=== PATIENT | female | born 1995 | race Caucasian/White ===

== ENCOUNTER → 2023-02-27 09:22 | Outpatient (CLI) | payer BC, SELFPAY ==
--- NOTE | ~2023-02-27 | US_ITS ---
EXAMINATION: US OB transvaginal DATE: 02/27/2023 09:50 INDICATION: Left lower quadrant abdominal pain. TECHNIQUE: Multiple transvaginal sonographic images of the pelvis were obtained. COMPARISON: None. FINDINGS: The uterus measures 7.8 x 4.9 x 5.4 cm. There is physiologic free fluid in the pelvis. The endometria l complex measures 4 mm in thickness. There is a cyst in the endometrial complex with mean diameter o f 4 mm. The right ovary measures 3.7 x 2.9 x 3.4 cm. The left ovary measures 2.6 x 1.4 x 1.5 cm. Ther e is normal vascular flow in the ovaries. IMPRESSION: 1. Cyst in the endometrial complex, which is indeterminate for a gestational sac. A test is recommended. Reviewed, dictated and finalized at location A. IMPRESSION: 1. Cyst in the endometrial complex, which is indeterminate for a gestational sa c. A test is recommended.
== END ==
PROVIDERS: PCP Family Medicine; Visit Provider Family Medicine
DX: N73.9 Female pelvic inflammatory disease, unspecified (principal); Z32.01 Encounter for pregnancy test, result positive; R10.31 Right lower quadrant pain
CPT/HCPCS: 76817

== ENCOUNTER 2025-05-10 16:21 | Emergency (ER) | payer OTHER, SELFPAY ==
[2025-05-10] VITALS (12 sets, daily range): BP systolic 94–115; BP diastolic 45–72; PULSE 75–129; RESP 16–18; TEMP 36.7–37.3; O2SAT 98–100
--- NOTE | ~2025-05-10 | XR_ITS ---
EXAMINATION: XR chest 1V DATE: 05/10/2025 17:21 INDICATION: Sepsis TECHNIQUE: frontal view of the chest was obtained. COMPARISON: None FINDINGS: The lungs are clear with no focal airspace opacities, pulmonary edema, pleural effusion or pneumothor ax. The cardiomediastinal silhouette is normal. Visualized bones and soft tissues are unremarkable. IMPRESSION: 1. No acute cardiopulmonary disease. Reviewed, dictated and finalized at location A.
--- NOTE | ~2025-05-10 | CT_ITS ---
CLINICAL INDICATION: Fever and leukocytosis COMPARISON: None. Reference is made to a sonographic evaluation of the pelvis performed 2 hours earlier demonstrating a simple cyst within the left ovary measuring 2.7 cm in greatest dimension. TECHNIQUE: Multiple contiguous axial images of the abdomen and pelvis were performed following the ad ministration of with 100 mL Omnipaque-350 intravenous contrast The dose-length product (DLP) was 406.99 mGy-cm. Automated exposure control and iterative reconstruction technique were employed. FINDINGS/OBSERVATIONS: Visualized lower thorax: The bilateral lung bases are clear. The heart is of normal size, without pericardial effusion. Liver: The liver demonstrates homogeneous enhancement and is not enlarged. Gallbladder and biliary system: The gallbladder is only minimally distended, and otherwise unremarkable. Pancreas: The pancreas enhances homogeneously without ductal dilatation. Spleen: The spleen enhances homogeneously and is not enlarged. Kidneys: The bilateral kidneys enhance symmetrically without hydronephrosis or renal calculi and demonstrate r apid excretion. Adrenal glands: Unremarkable. Gastrointestinal tract: Fecal stasis within the colon. Appendix: The air-filled appendix is of normal caliber (axial series, images 116 through 142) Vasculature: Unremarkable. Lymph nodes: No pathologically enlarged or morphologically suspicious lymph nodes within the retroperitoneum or at the root of the mesentery. Pelvic structures: The bladder is only minimally distended, and is opacified with contrast. Trace surrounding inflammatory changes noted, for which cystitis is suspected. The uterus is anteverted and anteflexed. Redemonstration of the left ovarian cyst, seen on earlier ultrasound. Body wall and musculoskeletal: Small fat-containing umbilical hernia. No significant degenerative disease within the lower thoracic or lumbosacral spine. IMPRESSION: Normal appendix. Trace inflammatory change surrounding the bladder for which cystitis is suspected. Left ovarian cyst is redemonstrated. Reviewed, dictated and finalized at location A. IMPRESSION: Normal appendix. Trace inflammatory change surrounding the bladder for which cystitis is suspect ed. Left ovarian cyst is redemonstrated.
--- NOTE | ~2025-05-10 | US_ITS ---
EXAM: PELVIC ULTRASOUND HISTORY: lower abdominal pain, r/o torsion . 2 para 2. Last menstrual period is given as 05/04/2025 COMPARISON: None. FINDINGS: UTERUS: 9.5 x 4.9 x 4.9 cm. The uterus is anteverted and anteflexed. The endometrial complex measures 8.5 mm. RIGHT OVARY: The right ovary is unremarkable in echogenicity and size measuring 3.2 x 1.8 x 2.3 cm. Dopplerable flow is identified. LEFT OVARY: The left ovary is heterogeneous in echogenicity and increased in size measuring 4.6 x 1.9 x 2.8 cm Dopplerable flow is identified. A single anechoic avascular focus is identified within the left ovary measuring 2.7 x 1.8 x 2.3 cm, r epresenting a simple cyst (perhaps an involuting follicle) for which no further follow-up is needed. No free fluid is identified within the pelvis. IMPRESSION: Simple cyst within the left ovary which does not meet size criteria for follow-up in a patient of thi s age. Dopplerable flow is identified bilaterally for which torsion is not present. Reviewed, dictated and finalized at location A. IMPRESSION: Simple cyst within the left ovary which does not meet size criteria for follow- up in a patient of this age. Dopplerable flow is identified bilaterally for which torsion is not present.
--- OUTSIDE RECORDS SUMMARY | 2025-05-10 16:23 | XMS_ITS | Encounter Summary ---
Author Organization [facility] - [facility] Address [address] [place] [address] Care Team Providers Care Bumper Straightener Name Role Phone Wanda Mattson MD Primary Care Provider Wanda Mattson MD Unavailable [phone] Encounter Details Date Type Department Care Team (Late st Contact Info) Description 03/27/2022 [employer] Message [facility] Patient Accounts [address] [place] [address] [facility] Provider Monthly Payment Plan Social History Tobacco Use Types Packs/Day Years Used Date Smoking Tobacco: Never Smokeless Tobacco: Never Alcohol Use Standard Drinks/Week Comments Not Currently 0 (1 standard drink = 0.6 oz pur e alcohol) Humiliation, Afraid, Rape, and Kick questionnair e Answer Date Recorded Within the last year, have y ou been afraid of your partner or ex-partner? No 08/14/2021 Within the last year, have y ou been humiliated or emotionally abused in other ways by your partner or ex-partner? No Within the last year, have y ou been kicked, hit, slapped, or otherwise physically hurt by your partner or ex-partner? No 08/14/2021 Within the last year, have y ou been raped or forced to have any kind of sexual activity by your partner or ex-partner? No 08/14/2021 AUDIT-C Answer Date Recorded Frequency of Alcohol Consumption Never 06/01/2019 Average Number of Drinks Not on file 019 Frequency of Binge Drinking Not on file 05/05 Comments No Sex and Gender Information Value Date Recorded Sex Assigned at Female 05/10/2025 9:30 AM CDT Legal Sex Female 9:16 PM DUPLIGRAPH OPERATOR Gender Identity Not on file Sexual Orientation Not on file documented as of this encounter Functional Status * RETIRED Are you deaf or do you have serious difficulty hearing Answer Date of Assessment Author Status No 08/14/2021 11:58 PM DUPLIGRAPH OPERATOR Acti ve * RETIRED Are you blind or do you have serious difficulty seeing, even when wearing glasses? Answer Date of Assessment Author Status No 08/14/2021 11:58 PM DUPLIGRAPH OPERATOR Acti ve * Do you have serious difficulty walking or climbing stairs? Answer Date of Assessment Author Status No 08/14/2021 11:58 PM DUPLIGRAPH OPERATOR Nate Sanchez RN Active * Do you have difficulty dressing or bathing? Answer Date of Assessment Author Status No 08/14/2021 11:58 PM DUPLIGRAPH OPERATOR Nate Sanchez RN Active * Because of a physical, mental, or emotional condition, do you have difficulty doing errands alone such as visiting a doctor's office or shopping? Answer Date of Assessment Author Status No 08/14/2021 11:58 PM DUPLIGRAPH OPERATOR Nate Sanchez RN Active documented as of this encounter Mental Status * Because of a physical, mental, or emotional condition, do you have serious difficulty concentrating, remembering, or making decisions? Answer Entry Date Author Status No 08/14/2021 11:58 PM DUPLIGRAPH OPERATOR Nate Sanchez RN Active documented in this encounter Plan of Treatment Not on file documented as of this encounter Visit Diagnoses Not on filedocumented in this encounter Care Teams Bumper Straightener Relationship Specialty Start Date End Date Wanda Mattson MD [address] [place] [address] PCP - General FAMILY PRACTICE 08/13/21 Wanda Mattson MD [address] [place] [address] FAMILY PRACTICE 08/13/21 documented as of this encounter
--- OUTSIDE RECORDS SUMMARY | 2025-05-10 16:23 | XMS_ITS | Encounter Summary ---
Author Organization [facility] Address [address] [place] [address] Care Team Providers Care Bale Breaker Operator Name Role Phone Wanda Mattson MD Primary Care Provider Wanda Mattson MD Unavailable [phone] Encounter Details Date Type Department Care Team (Late st Contact Info) Description 05/10/2025 Orders Only [facility] [address] [id number] Saira Elias, [facility] [address] [place] [address] Social History Tobacco Use Types Packs/Day Years [...] AM CDT Legal Sex Female 9:16 PM SHIP PAINTER HELPER Gender Identity Not on file Sexual Orientation Not on file documented as of this encounter Functional Status * RETIRED Are you deaf or do you have serious difficulty hearing Answer Date of Assessment Author Status No 08/14/2021 11:58 PM SHIP PAINTER HELPER Acti ve * RETIRED Are you blind or do you have serious difficulty seeing, even when wearing glasses? Answer Date of Assessment Author Status No 08/14/2021 11:58 PM SHIP PAINTER HELPER Acti ve * Do you have serious difficulty walking or climbing stairs? Answer Date of Assessment Author Status No 08/14/2021 11:58 PM SHIP PAINTER HELPER Nate Sanchez RN Active * Do you have difficulty dressing or bathing? Answer Date of Assessment Author Status No 08/14/2021 11:58 PM SHIP PAINTER HELPER Nate Sanchez, RN Active * Because of a physical, mental, or emotional condition, do you have difficulty doing errands alone such as visiting a doctor's office or shopping? Answer Date of Assessment Author Status No 08/14/2021 11:58 PM SHIP PAINTER HELPER Nate Sanchez RN Active documented as of this encounter Mental Status * Because of a physical, mental, or emotional condition, do you have serious difficulty concentrating, remembering, or making decisions? Answer Entry Date Author Status No 08/14/2021 11:58 PM SHIP PAINTER HELPER Nate Sanchez RN Active documented in this encounter Plan of Treatment Not on file documented as of this encounter Visit Diagnoses Not on filedocumented in this encounter Care Teams Bale Breaker Operator Relationship Specialty Start Date End Date Wanda Mattson MD [address] [place], [place] [id number] PCP - General FAMILY PRACTICE 08/13/21 Wanda Mattson MD [address] [place] [address] FAMILY PRACTICE 08/13/21 documented as of this encounter
--- OUTSIDE RECORDS SUMMARY | 2025-05-10 16:23 | XMS_ITS | Encounter Summary ---
Author Organization [facility] Address [address] [place] [address] Care Team Providers Care Wind Field Service Manager Name Role Phone Wanda Mattson MD Primary Care Provider Wanda Mattson MD Unavailable [phone] Encounter Details Date Type Department Care Team (Late st Contact Info) Description 05/10/2025 Orders Only [facility] [address] [phone] Saira Elias, [facility] [address] [place] [address] Social History Tobacco Use Types Packs/Day Years [...] AM CDT Legal Sex Female 9:16 PM STARS SPECIALIST Gender Identity Not on file Sexual Orientation Not on file documented as of this encounter Functional Status * RETIRED Are you deaf or do you have serious difficulty hearing Answer Date of Assessment Author Status No 08/14/2021 11:58 PM STARS SPECIALIST Acti ve * RETIRED Are you blind or do you have serious difficulty seeing, even when wearing glasses? Answer Date of Assessment Author Status No 08/14/2021 11:58 PM STARS SPECIALIST Acti ve * Do you have serious difficulty walking or climbing stairs? Answer Date of Assessment Author Status No 08/14/2021 11:58 PM STARS SPECIALIST Nate Sanchez RN Active * Do you have difficulty dressing or bathing? Answer Date of Assessment Author Status No 08/14/2021 11:58 PM STARS SPECIALIST Nate Sanchez RN Active * Because of a physical, mental, or emotional condition, do you have difficulty doing errands alone such as visiting a doctor's office or shopping? Answer Date of Assessment Author Status No 08/14/2021 11:58 PM STARS SPECIALIST Nate Sanchez RN Active documented as of this encounter Mental Status * Because of a physical, mental, or emotional condition, do you have serious difficulty concentrating, remembering, or making decisions? Answer Entry Date Author Status No 08/14/2021 11:58 PM STARS SPECIALIST Nate Sanchez RN Active documented in this encounter Plan of Treatment Pending Results Name Type Priority Associated Diagnoses Date /Time C-REACTIVE PROTEIN Lab Routine Pelvic pain syndrome 05/10/2025 12:05 PM CDT SED RATE, ERYTHROCYTE (ESR) Lab Routine Pelvic pain syndrome 05/10/2025 12:05 PM CDT URINE BACTERIA CULTURE Microbiology Routine Pelvic pain syndrome 05/10/2025 12:05 PM CDT Scheduled Orders Name Type Priority Associated Diagnoses Orde r Schedule C-REACTIVE PROTEIN Lab Routine Pelvic pain syndrome Expected: 05/10/2025, Expires: 05/10/2026 SED RATE, ERYTHROCYTE (ESR) Lab Routine Pelvic pain syndrome Expected: 05/10/2025, Expires: 05/10/2026 URINE BACTERIA CULTURE Microbiology Routine Pelvic pain syndrome Expected: 05/10/2025, Expires: 05/10/2026 documented as of this encounter Results * (ABNORMAL) CBC W/DIFF AUTOMATED (05/10/2025 12:05 PM CDT) WBC 17.26(H) 4.50 - 11.00 x10'3/uL 05/10/2025 12:12 PM CDT [facility] RBC 4.46 4.00 - 5.20 x10'6/uL 05/10/2025 12:12 PM CDT [facility] HGB 13.5 12.0 - 16.0 G/DL 05/10/2025 12:12 PM CDT [facility] HCT 39.5 38.0 - 48.0 % 05/10/2025 12:12 PM CDT [facility] MCV 88.6 80.0 - 100.0 FL 05/10/2025 12:12 PM CDT [facility] MCH 30.3 26.0 - 34.0 PG 05/10/2025 12:12 PM CDT [facility] MCHC 34.2 31.0 - 37.0 G/DL 05/10/2025 12:12 PM CDT [facility] RDW 12.1 11.6 - 14.8 % 05/10/2025 12:12 PM CDT [facility] PLT 337 130 - 400 x10'3/uL 05/10/2025 12:12 PM CDT [facility] MPV 8.9 7.0 - 12.0 FL 05/10/2025 12:12 PM CDT [facility] CBC COMMENT AUTOMATED RBC MORPHOLOGY AND PLATELET EVALUATION NORMAL 05/10/2025 12:12 PM CDT [facility] NEUTROPHILS % 89.0(H) 40.0 - 74.0 % 05/10/2025 12:12 PM CDT [facility] LYMPHOCYTES % 5.5(L) 14.0 - 46.0 % 05/10/2025 12:12 PM CDT [facility] MONOCYTES % 4.4 4.0 - 13.0 % 05/10/2025 12:12 PM CDT [facility] EOSINOPHILS 0.3 0.0 - 7.0 % 05/10/2025 12:12 PM CDT [facility] BASOPHILS 0.2 0.0 - 3.0 % 05/10/2025 12:12 PM CDT [facility] IMMATURE GRANS % 0.6(H) 0.0 - 0.43 % 05/10/2025 12:12 PM CDT [facility] NRBC % 0.0 % 05/10/2025 12:12 PM CDT [facility] ABS. NEUTROPHILS TOTAL 15.36(H) 1.69 - 7.81 x10'3/uL 05/10/2025 12:12 PM CDT [facility] ABS. LYMPHOCYTES 0.95 0.21 - 5.42 x10'3/uL 05/10/2025 12:12 PM CDT [facility] ABS. MONOCYTES 0.76 0.04 - 1.37 x10'3/uL 05/10/2025 12:12 PM CDT [facility] ABS. EOSINOPHILS 0.05 0.00 - 0.68 x10'3/uL 05/10/2025 12:12 PM CDT [facility] ABS. BASOPHILS 0.04 0.00 - 0.08 x10'3/uL 05/10/2025 12:12 PM CDT [facility] ABS. IMMATURE GRANULOCYTES 0.10(H) 0.00 - 0.06 x10'3/uL 05/10/2025 12:12 PM CDT [facility] ABS. NUCLEATED RBC'S 0.00 0.00 - 0.01 x10'3/uL 05/10/2025 12:12 PM CDT [facility] 05/10/2025 12:0 5 PM CDT us Saira Elias [facility] Final R esult [facility] [address] [place] [address], * (ABNORMAL) COMPREHENSIVE METABOLIC PANEL (05/10/2025 12:05 PM CDT) GLUCOSE 105(H) 70 - 99 MG/DL 05/10/2025 12:26 PM CDT [facility] BUN 8 7 - 18 MG/DL 05/10/2025 12:26 PM CDT [facility] CREATININE S/P/B 0.67 0.50 - 1.20 MG/DL 05/10/2025 12:26 PM CDT [facility] SODIUM S/P/B 131(L) 136 - 145 MMOL/L 05/10/2025 12:26 PM CDT [facility] POTASSIUM S/P/B 4.2 3.5 - 5.1 MMOL/L 05/10/2025 12:26 PM CDT [facility] CHLORIDE S/P/B 97(L) 100 - 108 MMOL/L 05/10/2025 12:26 PM CDT [facility] CO2 28.2 21.0 - 32.0 MMOL/L 05/10/2025 12:26 PM CDT [facility] CALCIUM S/P/B 9.1 8.5 - 10.1 MG/DL 05/10/2025 12:26 PM CDT [facility] BILIRUBIN TOTAL S/P/B 1.1 0.2 - 1.2 MG/DL 05/10/2025 12:26 PM CDT [facility] Comment: THIS ASSAY IS NOT RECOMMENDED FOR PATIENTS UNDERGOING TREATMENT WITH ELTROMBOPAG DUE TO THE POTENTIAL FOR FALSELY ELEVATED RESULTS. TOTAL PROTEIN S/P/B 7.5 6.4 - 8.2 G/DL 05/10/2025 12:26 PM CDT [facility] ALBUMIN S/P/B 4.2 3.4 - 5.0 G/DL 05/10/2025 12:26 PM CDT [facility] AST 17 15 - 37 U/L 05/10/2025 12:26 PM CDT [facility] ALT 22 14 - 55 U/L 05/10/2025 12:26 PM CDT [facility] ALKALINE PHOSPHATASE S/P/B 69 50 - 136 U/L 05/10/2025 12:26 PM CDT [facility] ANION GAP 5.8 5.0 - 15.0 MMOL/L 05/10/2025 12:26 PM CDT [facility] BUN CREATININE RATIO 11.9 6 - 26 05/10/2025 12:26 PM CDT [facility] A/G RATIO 1.3 1.0 - 2.5 RATIO 05/10/2025 12:26 PM CDT [facility] GFR ESTIMATE >90 >90 ML/MIN/1.7 3 M2 05/10/2025 12:26 PM CDT [facility] Comment: NOTE: eGFR is not calculated for patients <18 years of age. This is an estimated GFR calculation using the new CKD EPI creatinine equation without race and so does not require a correction factor for race. This estimated GFR should not be used for calculating drug doses. 05/10/2025 12:0 5 PM CDT us Saira Elias [facility] Final R esult [facility] [address] [place] [address], documented in this encounter Visit Diagnoses Diagnosis Pelvic pain syndrome- Primary Pelvic congestion syndrome documented in this encounter Care Teams Wind Field Service Manager Relationship Specialty Start Date End Date Wanda Mattson MD [address] [place] [address] PCP - General FAMILY PRACTICE 08/13/21 Wanda Mattson MD [address] [place] [address] FAMILY PRACTICE 08/13/21 documented as of this encounter
--- OUTSIDE RECORDS SUMMARY | 2025-05-10 16:24 | XMS_ITS | Encounter Summary ---
Author Organization [facility] - [facility] Address [facility] [place] [address] Care Team Providers Care Microfilm Clerk Name Role Phone Wanda Mattson MD Primary Care Provider Wanda Mattson MD Unavailable [phone] Encounter Details Date Type Department Care Team (Late st Contact Info) Description 11/18/2021 [place] Message [facility] Patient Accounts [address] [place] [address] [facility] Provider Monthly Credit Card Payment Social History Tobacco Use Types Packs/Day Years [...] AM CDT Legal Sex Female 9:16 PM PROJECT INTERNSHIP Gender Identity Not on file Sexual Orientation Not on file documented as of this encounter Functional Status * RETIRED Are you deaf or do you have serious difficulty hearing Answer Date of Assessment Author Status No 08/14/2021 11:58 PM PROJECT INTERNSHIP Acti ve * RETIRED Are you blind or do you have serious difficulty seeing, even when wearing glasses? Answer Date of Assessment Author Status No 08/14/2021 11:58 PM PROJECT INTERNSHIP Acti ve * Do you have serious difficulty walking or climbing stairs? Answer Date of Assessment Author Status No 08/14/2021 11:58 PM PROJECT INTERNSHIP Nate Sanchez RN Active * Do you have difficulty dressing or bathing? Answer Date of Assessment Author Status No 08/14/2021 11:58 PM PROJECT INTERNSHIP Nate Sanchez RN Active * Because of a physical, mental, or emotional condition, do you have difficulty doing errands alone such as visiting a doctor's office or shopping? Answer Date of Assessment Author Status No 08/14/2021 11:58 PM PROJECT INTERNSHIP Nate Sanchez RN Active documented as of this encounter Mental Status * Because of a physical, mental, or emotional condition, do you have serious difficulty concentrating, remembering, or making decisions? Answer Entry Date Author Status No 08/14/2021 11:58 PM PROJECT INTERNSHIP Nate Sanchez RN Active documented in this encounter Plan of Treatment Not on file documented as of this encounter Visit Diagnoses Not on filedocumented in this encounter Care Teams Microfilm Clerk Relationship Specialty Start Date End Date Wanda Mattson MD [address] [place] [address] PCP - General FAMILY PRACTICE 08/13/21 Wanda Mattson MD [address] [place] [address] FAMILY PRACTICE 08/13/21 documented as of this encounter
--- OUTSIDE RECORDS SUMMARY | 2025-05-10 16:24 | XMS_ITS | Patient Health Record ---
Author Organization [facility] Address [address] [place] [address] Care Team Providers Care Building Construction Ironworker Name Role Phone Dr. Rusty Padron Primary Care Provider [phone] Dr. Wanda Mattson Unavailable [phone] Edward Stern Unavailable [phone] Saira Elias Unavailable [phone] Wanda Chance Unavailable [phone] Migration, Provider Unavailable Unavailable Results Component Value Reference Range Notes influenza A & B card Reviewed date:11/13/2024 11:29:17 AM Interpretation:Positive Performing Lab: Notes/Report: Positive Reason For Referral Reason Stress Induced Migra tracey - For Test Purposes, not real referral Diagnosis 1 Migraine, unspecifie d, not intractable, without status migrainosus (G43.909) Referral Organization [facility] Referring Provider First Name Dr. Oejda Referring Provider Last Name Vito Referring Provider Speciality Pediatrics Referred Provider Specialty Neurology General Notes Sherly Linder 0 11/13/2024 11:35:17 AM [employer] >For test purposes - not real referral Referral Priority Routine Medications Medication SIG (Take, Route, Frequency, Duration) Notes Start Date End Date Status Adderall 10 MG Tablet 1 tablet Oral two times a day; Duration: 30 days please provide generic 05/03/2025 Active Retin-A 0.05 % Cream External every day; Duration: 0 07/01/2023 Active Hydrocortisone 2.5 % Ointment External two times a day; Duration: 0 02/09/2022 Active Immunizations Vaccine Route Administration Date Status Comme nts Influenza, quadrivalent (IIV4), split virus, 6-35 months dosage IM Intramuscular 08/08/2021 Administered ,sourcename : New immunization record ,immstatus : Complete Source VFC Code: : Influenza, quadrivalent (IIV4), split virus, 6-35 months dosage IM Intramuscular 09/08/2022 Administered ,sourcename : N ew immunization record ,immstatus : Complete Influenza, quadrivalent (IIV4), split virus, 6-35 months dosage IM Intramuscular 07/29/2023 Administered ,sourcename : N ew immunization record ,immstatus : Complete Influenza, seasonal, injectable, preservative free, 3 yrs and above IM Intramuscular 08/01/2024 Administered ,sourcename : N ew immunization record ,immstatus : Complete Tdap IM Intramuscular 06/02/2021 Administered ,sourc ename : New immunization record ,immstatus : Complete Problems Problem Type SNOMED Code ICD Code Onset Dates Problem Status W/U Status Risk Notes Problem Viral infection (67381811) Viral infection, unspecified (B34.9) 04/15/20 23 Active confirmed Problem Generalized anxiety disorder (80262774) Generalized anxiety disorder (F41.1) 07/27/20 23 Active confirmed Problem Behavioral and emotional disorder with onset in childhood (405254404) Other specified behavioral and emotional disorders with onset usually occurring in childhood and adolescence (F98.8) 07/27/20 23 Active confirmed Problem Migraine without aura, not refractory (disorder) (497636293) Migraine, unspecified, not intractable, without status migrainosus (G43.909) 11/18/19 24 Active confirmed Problem Insomnia (538081327) Insomnia, unspecified (G47.00) 06/05/20 22 Active confirmed Problem Acute sinusitis (19849724) Acute sinusitis, unspecified (J01.90) 07/24/20 24 Active confirmed Problem Streptococcal pharyngitis (90522084) Streptococcal pharyngitis (J02.0) 04/17/20 23 Active confirmed Problem Acute pharyngitis (391890539) Acute pharyngitis, unspecified (J02.9) 04/15/20 23 Active confirmed Problem Acute upper respiratory infection (14185792) Acute upper respiratory infection, unspecified (J06.9) 10/06/19 22 Active confirmed Problem Influenza due to Influenza A virus with upper respiratory signs (819768554156110) Influenza due to other identified influenza virus with other respiratory manifestations (J10.1) 10/16/19 22 Active confirmed Problem Chronic sinusitis (77174562) Chronic sinusitis, unspecified (J32.9) 10/08/19 23 Active confirmed Problem Atopic dermatitis (86048159) Atopic dermatitis, unspecified (L20.9) 04/02/20 22 Active confirmed Problem Seborrhea capitis (019532203) Seborrhea capitis (L21.0) 04/13/20 23 Active confirmed Problem Pain of right knee region (finding) (836471754442352) Pain in right knee (M25.561) 08/12/20 23 Active confirmed Problem Abnormal uterine bleeding (09791027686162) Abnormal uterine and vaginal bleeding, unspecified (N93.9) 02/27/20 23 Active confirmed Problem Right lower quadrant pain (500835238) Right lower quadrant pain (R10.31) 02/27/20 23 Active confirmed Problem Eruption of skin (083020484) Rash and other nonspecific skin eruption (R21) 02/10/20 22 Active confirmed Problem Malaise (699698748) Other malaise (R53.81) 04/15/20 23 Active confirmed Problem Fatigue (40712774) Other fatigue (R53.83) 06/05/20 22 Active confirmed Problem Symptom: generalized (590718509) Other general symptoms and signs (R68.89) 08/26/20 22 Active confirmed Problem Injury of right lower leg (3116978020741625 9) Unspecified injury of right lower leg, initial encounter (S89.91XA) 04/07/20 23 Active confirmed Problem Vaccination given (796730576) Encounter for immunization (Z23) 08/08/20 21 Active confirmed Problem Contraception care education (849819367) Encounter for other general counseling and advice on contraception (Z30.09) 10/27/19 23 Active confirmed Problem test positive (490538735) Encounter for test, result positive (Z32.01) 02/27/20 23 Active confirmed Problem Personal history of other (healed) physical injury and trauma (Z87.828) 08/12/20 23 Active confirmed Problem COVID-19 (153274739) COVID-19 (U07.1) 10/17/19 22 Active confirmed Problem Suspected disease caused by Severe acute respiratory coronavirus 2 (situation) (816590288) Encounter for screening for COVID-19 (Z11.52) 10/06/19 22 Active confirmed Problem Acute cough (9797265892834011 04) Acute cough (R05.1) 10/17/19 22 Active confirmed Vital Signs Heart Rate 88 /min 05/10/2025 Temperature 97.1 degrees Fahrenheit 05/10/2025 Blood pressure diastolic 68 mm Hg 05/10/2025 Oximetry 99 % 05/10/2025 Blood pressure systolic 98 mm Hg 05/10/2025 Encounters Encounter Location Date Provider Diagnosis [address] [address] 07/24/2024 Saira Elias Acute sinusitis, unspecified J01.[address] [address] 08/01/2024 Dr. Wanda Mattson Encounter for immunization Z23 [address] [address] 05/10/2025 Saira Elias Pelvic pain in female R10.[address] [address] 10/24/2024 Saira Elias Influenza A J10.[address] [address] 11/14/[address] [address] 09/02/2024 Provider Migration [address] [address] 09/03/2024 Provider Migration [address] [address] 10/12/2024 Dr. Rusty Padron [address] [address] 11/09/2024 Saira Elias [address] [address] 11/13/2024 Dr. Rusty Padron Attention deficit disorder (ADD) in adult F98.[address] [address] 12/11/2024 Dr. Rusty Padron Attention deficit disorder (ADD) in adult F98.[address] [place] [address] 01/10/2025 Dr. Rusty Padron Attention deficit disorder (ADD) in adult [address] [address] 02/07/2025 Dr. Rusty Padron Attention deficit disorder (ADD) in adult [address] [address] 03/06/2025 Wanda Chance Attention deficit disorder (ADD) in adult [address] [address] 04/02/2025 Dr. Rusty Padron Attention deficit disorder (ADD) in adult [address] [address] 05/03/2025 Dr. Rusty Padron Attention deficit disorder (ADD) in adult [address] [address] 11/08/2024 Dr. Rusty Padron [address] [address] 11/08/2024 Dr. Rusty Padron [address] [address] 11/13/2024 Dr. Rusty Padron [address] [address] 11/13/2024 Dr. Rusty Padron [address] [address] 11/13/2024 Dr. Rusty Padron Assessments Encounter Date Diagnosis (ICD Code) Assessment Notes Treatment Notes Treatment Clinical Notes Section Notes 10/24/2024 Influenza A (ICD-10 - J10.1) Day 2 of Flu A. Tested with sample testing kit. Exam is overall good. Discussed the usual disease process and signs and symptoms to monitor . Tylenol or ibuprofen for fever or chills and body aches. Lots of fluids. Patient declined tamiflu at this time. Offered Tamiflu for prophylactic dosing to the rest of family and will hold off at this time. Monitor for secondary infections. 11/13/2024 Attention deficit disorder (ADD) in adult (ICD-10 - F98.8) 12/11/2024 Attention deficit disorder (ADD) in adult (ICD-10 - F98.8) 01/10/2025 Attention deficit disorder (ADD) in adult (ICD-10 - F98.8) 02/07/2025 Attention deficit disorder (ADD) in adult (ICD-10 - F98.8) 03/06/2025 Attention deficit disorder (ADD) in adult (ICD-10 - F98.8) 04/02/2025 Attention deficit disorder (ADD) in adult (ICD-10 - F98.8) 05/03/2025 Attention deficit disorder (ADD) in adult (ICD-10 - F98.8) 05/10/2025 Pelvic pain in female (ICD-10 - R10.2) 07/24/2024 Acute sinusitis, unspecified (ICD-10 - J01.90) 08/01/2024 Encounter for immunization (ICD-10 - Z23) Plan Of Treatment Pending Test Test Name Order Date C-Reactive Protein 05/10/2025 Erythrocyte Sedimentation Rate CBC w Auto Diff 05/10/2025 Comprehensive Metabolic Panel 05/10/2025 CT ABD+PEL W CON 05/10/2025 CT ABD+PEL WO CON 05/10/2025 Insurance Providers Payer Name Payer Address Payer Phone Subscriber Number Group Number Insured Name Patient Relationship to Insured Coverage Start Date Coverage End Date [facility] [address] [address] [place] [address] [id number] Leo Lewis Spouse - patient is the spouse of the insured 4 Medications Administered Medication Instructions Date of Administration Dosage Notes Ketorolac Tromethamine 05/10/2025 0.5 mg
--- OUTSIDE RECORDS SUMMARY | 2025-05-10 16:24 | XMS_ITS | Clinical Summary ---
Author Organization [facility] Address [facility] [place] [address] Care Team Providers Care Veterans Service Officer Name Role Phone Wanda Mattson MD Primary Care Provider Wanda Mattson MD Unavailable [phone] Allergies Active Allergy Reactions Criticality Noted Date Comments Cefaclor Hives 08/14/2021 Cefaclor Hives High 02/13/2014 Medications vitamin 27-1 MG Tab tablet Take 1 tablet by mouth daily. Active vitamin 27-1 MG tablet Take 1 tablet by mouth daily. Active Active Problems Problem Noted Date Diagnosed Date Encounter for elective induction of labor ([facility]) 08/14/2021 (spontaneous vaginal delivery) ([facility]) Resolved Problems Problem Noted Date Diagnosed Date Resolved Date Gestational diabetes mellitu s (GDM) affecting first ([facility]) 06/21/2019 06/24/2019 Encounters Date Type Department Care Team Description 05/10/2025 11:57 AM T Hospital Encounter [facility] [address] [place] [address] Saira Cid ANP-BC Arrived 05/10/2025 9:34 AM CDT Hospital Encounter [facility] [address] [place] [address] Saira Cid ANP-BC Arrived 05/10/2025 Orders Only [facility] [address] [place] [address] Saira Cid ANP-BC 05/10/2025 Orders Only [facility] [address] [address] Saira Cid, ANP-BC 05/10/2025 Travel from Last 3 Months Immunizations Immunization Administration Dates Next Due Dtap (Generic) 06/08/2019, 8,07/10/1994,1993,1992,1993 Influenza (Generic) 07/12/2017 Influenza Adult (Generic) 09/25/2019 MMR (Generic) 05/24/1998,01/03/1994 Opv 05/24/1998,07/10/1994,1993 ,1993 Family History Relation Status Comments Father Alive Mother Alive Social History Tobacco Use Types Packs/Day Years [...] AM CDT Legal Sex 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 Gender Identity Not on file Sexual Orientation Not on file Last Filed Vital Signs Vital Sign Reading Time Taken Comments Blood Pressure 109/69 08/17/2021 8:00 AM MACHINE PRINTER Pulse 70 08/17/2021 8:00 AM MACHINE PRINTER Temperature 36.9 C (98.5 F) 08/17/2021 8:00 AM MACHINE PRINTER Respiratory Rate 20 08/17/2021 8:00 AM MACHINE PRINTER Oxygen Saturation 99% 08/17/2021 8:00 AM MACHINE PRINTER Inhaled Oxygen Concentration - - Weight 84.4 kg (186 lb) 08/14/2021 9:00 PM MACHINE PRINTER Height 160 cm (5' 3) 08/14/2021 9:00 PM MACHINE PRINTER Body Mass Index 32.95 08/14/2021 9:00 PM MACHINE PRINTER Plan of Treatment Health Maintenance Due Date Last Done Comments Annual Physical 01/08/1996 Hepatitis C 2011 Hepatitis B Vaccines (1 of 3 - 19+ 3-dose series) 01/08/2012 Cervical Cancer Screening Pap Smear (Age 30 to 64) Every 3 Years 04/27/2017 04/27/2014 HPV Vaccines (1 - 3-dose SCDM series) 01/08/2020 Cervical Cancer Screening Pap with HPV Testing (Age 30 to 64) Every 5 Years 2023 Cervical Cancer Screening with HPV 2023 COVID-19 Vaccine ( season) 2024 06/27/2021, 06/06/2021 DTaP, Tdap and Td Vaccines (8 - Td or Tdap) 06/02/2031 06/02/2021, 06/08/2019, 06/08/2019, Additional history exists Meningococcal B Vaccine Aged Out No l onger eligible based on patient's age to complete this topic Meningococcal Vaccine Aged Out No jose elias alfred eligible based on patient's age to complete this topic Pneumococcal Vaccine: Pediatrics (0 to 5 Years) and At-Risk Patients (6 to 49 Years) Aged Out No longer eligible based on patient's age to complete this topic RSV Immunizations Under 20 Months Aged Out No longer eligible based on patient's age to complete this topic Procedures Procedure Name Priority Date/Time Associated Diagnosis Comments URINALYSIS AUTO DIP STAT 05/10/2025 1 2:05 PM CDT CBC W/DIFF AUTOMATED Routine 05/10/2025 12:05 PM CDT Pelvic pain syndrome COMPREHENSIVE METABOLIC PANEL Routine 05/10/2025 12:05 PM CDT Pelvic pain syndrome CT ABD+PEL W CON STAT 05/10/2025 10:1 6 AM CDT Pelvic pain in female THINPREP IMAGING PAP REFLEX HPV MRNA E6/E7 Routine 04/27/2014 3:00 PM CDT from Last 3 Months or Most Recently Relevant to Health Maintenance Results * (ABNORMAL) URINALYSIS AUTO DIP (05/10/2025 12:05 PM CDT) COLOR (U) LIGHT YELLOW(A) YELLOW 05/10/2025 2:21 PM CDT [facility] TRANSPARENCY CLEAR CLEAR 05/10/2025 2:21 PM CDT [facility] SPECIFIC GRAVITY (U) >1.030(H) 1.001 - 1.030 05/10/2025 2:21 PM CDT [facility] U PH 6.0 5.0 - 9.0 05/10/2025 2:21 PM CDT [facility] LEUKOCYTES (U) 2+(A) NEGATIVE 05/10/2025 2:21 PM CDT [facility] NITRITES NEGATIVE NEGATIVE 05/10/2025 2:21 PM CDT [facility] PROTEIN RANDOM (U) NEGATIVE NEGATIVE 05/10/2025 2:21 PM CDT [facility] GLUCOSE (U) NORMAL NORMAL 05/10/2025 2:21 PM CDT [facility] KETONES MG/DL (U) NEGATIVE NEGATIVE 05/10/2025 2:21 PM CDT [facility] UROBILINOGEN 2.0(A) NORMAL EU/DL 05/10/2025 2:21 PM CDT [facility] BILIRUBIN (U) NEGATIVE NEGATIVE 05/10/2025 2:21 PM CDT [facility] BLOOD (U) NEGATIVE NEGATIVE 05/10/2025 2:21 PM CDT [facility] URINE MICROSCOPIC URINE MICROSCOPIC TO FOLLOW. 05/10/2025 2:21 PM CDT [facility] 05/10/2025 12:0 5 PM CDT Saira Cid [facility] URINE ORDERABLES Final Result [facility] [address] [address], [place] * (ABNORMAL) COMPREHENSIVE METABOLIC PANEL (05/10/2025 12:05 PM CDT) GLUCOSE 105(H) 70 - 99 MG/DL 05/10/2025 12:26 PM CDT [facility] BUN 8 7 - 18 MG/DL 05/10/2025 12:26 PM CDT [facility] CREATININE S/P/B 0.67 0.50 - 1.20 MG/DL 05/10/2025 12:26 PM CDT [facility] SODIUM S/P/B 131(L) 136 - 145 MMOL/L 05/10/2025 12:26 PM CDT [facility] POTASSIUM S/P/B 4.2 3.5 - 5.1 MMOL/L 05/10/2025 12:26 PM CDT [facility] CHLORIDE S/P/B 97(L) 100 - 108 MMOL/L 05/10/2025 12:26 PM CDT [facility] CO2 28.2 21.0 - 32.0 MMOL/L 05/10/2025 12:26 PM CDT [facility] CALCIUM S/P/B 9.1 8.5 - 10.1 MG/DL 05/10/2025 12:26 PM CDT [facility] BILIRUBIN TOTAL S/P/B 1.1 0.2 - 1.2 MG/DL 05/10/2025 12:26 PM CDT [facility] Comment: THIS ASSAY IS NOT RECOMMENDED FOR PATIENTS UNDERGOING TREATMENT WITH ELTROMBOPAG DUE TO THE POTENTIAL FOR FALSELY ELEVATED RESULTS. TOTAL PROTEIN S/P/B 7.5 6.4 - 8.2 G/DL 05/10/2025 12:26 PM CDT [facility] ALBUMIN S/P/B 4.2 3.4 - 5.0 G/DL 05/10/2025 12:26 PM CDT [facility] AST 17 15 - 37 U/L 05/10/2025 12:26 PM CDT [facility] ALT 22 14 - 55 U/L 05/10/2025 12:26 PM CDT [facility] ALKALINE PHOSPHATASE S/P/B 69 50 - 136 U/L 05/10/2025 12:26 PM CDT [facility] ANION GAP 5.8 5.0 - 15.0 MMOL/L 05/10/2025 12:26 PM CDT [facility] BUN CREATININE RATIO 11.9 6 - 26 05/10/2025 12:26 PM CDT [facility] A/G RATIO 1.3 1.0 - 2.5 RATIO 05/10/2025 12:26 PM CDT [facility] GFR ESTIMATE >90 >90 ML/MIN/1.7 3 M2 05/10/2025 12:26 PM CDT [facility] Comment: NOTE: eGFR is not calculated for patients <18 years of age. This is an estimated GFR calculation using the new CKD EPI creatinine equation without race and so does not require a correction factor for race. This estimated GFR should not be used for calculating drug doses. 05/10/2025 12:0 5 PM CDT us Saira Cid [facility] Final R esult [facility] [address] [address], * (ABNORMAL) CBC W/DIFF AUTOMATED (05/10/2025 12:05 PM CDT) WBC 17.26(H) 4.50 - 11.00 x10'3/uL 05/10/2025 12:12 PM CDT [facility] RBC 4.46 4.00 - 5.20 x10'6/uL 05/10/2025 12:12 PM CDT [facility] HGB 13.5 12.0 - 16.0 G/DL 05/10/2025 12:12 PM CDT [facility] HCT 39.5 38.0 - 48.0 % 05/10/2025 12:12 PM CDT [facility] MCV 88.6 80.0 - 100.0 FL 05/10/2025 12:12 PM CDT [facility] MCH 30.3 26.0 - 34.0 PG 05/10/2025 12:12 PM CDT [facility] MCHC 34.2 31.0 - 37.0 G/DL 05/10/2025 12:12 PM CDT [facility] RDW 12.1 11.6 - 14.8 % 05/10/2025 12:12 PM CDT [facility] PLT 337 130 - 400 x10'3/uL 05/10/2025 12:12 PM CDT [facility] MPV 8.9 7.0 - 12.0 FL 05/10/2025 12:12 PM CDT [facility] CBC COMMENT AUTOMATED RBC MORPHOLOGY AND PLATELET EVALUATION NORMAL 05/10/2025 12:12 PM CDT [facility] NEUTROPHILS % 89.0(H) 40.0 - 74.0 % 05/10/2025 12:12 PM CDT [facility] LYMPHOCYTES % 5.5(L) 14.0 - 46.0 % 05/10/2025 12:12 PM CDT [facility] MONOCYTES % 4.4 4.0 - 13.0 % 05/10/2025 12:12 PM CDT [facility] EOSINOPHILS 0.3 0.0 - 7.0 % 05/10/2025 12:12 PM CDT [facility] BASOPHILS 0.2 0.0 - 3.0 % 05/10/2025 12:12 PM CDT [facility] IMMATURE GRANS % 0.6(H) 0.0 - 0.43 % 05/10/2025 12:12 PM CDT [facility] NRBC % 0.0 % 05/10/2025 12:12 PM CDT [facility] ABS. NEUTROPHILS TOTAL 15.36(H) 1.69 - 7.81 x10'3/uL 05/10/2025 12:12 PM CDT [facility] ABS. LYMPHOCYTES 0.95 0.21 - 5.42 x10'3/uL 05/10/2025 12:12 PM CDT [facility] ABS. MONOCYTES 0.76 0.04 - 1.37 x10'3/uL 05/10/2025 12:12 PM CDT [facility] ABS. EOSINOPHILS 0.05 0.00 - 0.68 x10'3/uL 05/10/2025 12:12 PM CDT [facility] ABS. BASOPHILS 0.04 0.00 - 0.08 x10'3/uL 05/10/2025 12:12 PM CDT [facility] ABS. IMMATURE GRANULOCYTES 0.10(H) 0.00 - 0.06 x10'3/uL 05/10/2025 12:12 PM CDT [facility] ABS. NUCLEATED RBC'S 0.00 0.00 - 0.01 x10'3/uL 05/10/2025 12:12 PM CDT [facility] 05/10/2025 12:0 5 PM CDT us Saira Cid [facility] Final R esult [facility] [address] [address], [place] * CT ABD+PEL W CON (05/10/2025 10:16 AM CDT) Anatomical Region Laterality Modality Abdomen Computed Tomogra phy 05/10/2025 11:0 6 AM CDT Impressions 05/10/2025 11:09 AM CDT IMPRESSION: 1. No acute findings Ordered By: SAIRA CID Interpreted By: Sadi Lerner MD, 05/10/2025 11:06 AM Narrative 05/10/2025 11:09 AM CDT [address] [place] [address] CT ABDOMEN AND PELVIS WITH CONTRAST Exam date:05/10/2025 9:59 AM Clinical history: Elevated pain. Technique: Dynamic helical images of the abdomen and pelvis were obtained. The patient received approximately 100 mL of Isovue 370 nonionic intravenous contrast through an IV in the right antecubital fossa. A dose lowering technique was used for this procedure, which may include, but is not limited to, dose reduction technique, automated exposure control, the use of iterative reconstruction, and ALARA (As Low As Reasonably Achievable) / Image Gently techniques. Comparison: None. FINDINGS: Images of the lower thorax demonstrate the visualized portion of the heart to appear normal. The lung bases are clear. Images of the abdomen demonstrate the overall size and morphology of the liver to be within normal limits. No hepatic lesions are observed. No ascites is seen. The gallbladder is present and normally distended. No stones are observed within its lumen and there is no evidence of cholecystitis or biliary obstruction. The pancreas, spleen, and adrenal glands appear grossly normal. The kidneys are normal in size bilaterally. There is normal symmetric enhancement after the administration of contrast. No stones or hydronephrosis is apparent. Both ureters follow normal expected course through the retroperitoneum. Images of the pelvis demonstrate the urinary bladder to appear normal. The uterus is normal in size and resides in an anteverted position in the mid pelvis. A left ovarian cyst measures 3.1 cm in diameter. Otherwise, the adnexa appear normal. The stomach and small bowel have a normal overall appearance. The appendix is within normal limits. The colon appears normal. No adenopathy or abnormal fluid collections are seen Procedure Note Sadi Lerner MD - 05/10/[address] [place] [address] CT ABDOMEN AND PELVIS WITH CONTRAST Exam date:05/10/2025 9:59 AM Clinical history: Elevated pain. Technique: Dynamic helical images of the abdomen and pelvis were obtained.The patient received approximately 100 mL of Isovue 370 nonionicintravenous contrast through an IV in the right antecubital fossa. A doselowering technique was used for this procedure, which may include, but isnot limited to, dose reduction technique, automated exposure control, theuse of iterative reconstruction, and ALARA (As Low As ReasonablyAchievable) / Image Gently techniques. Comparison: None. FINDINGS: Images of the lower thorax demonstrate the visualized portion of the heartto appear normal. The lung bases are clear. Images of the abdomen demonstrate the overall size and morphology of theliver to be within normal limits. No hepatic lesions are observed. Noascites is seen. The gallbladder is present and normally distended. Nostones are observed within its lumen and there is no evidence ofcholecystitis or biliary obstruction. The pancreas, spleen, and adrenalglands appear grossly normal. The kidneys are normal in size bilaterally.There is normal symmetric enhancement after the administration ofcontrast. No stones or hydronephrosis is apparent. Both ureters follownormal expected course through the retroperitoneum. Images of the pelvis demonstrate the urinary bladder to appear normal. Theuterus is normal in size and resides in an anteverted position in the midpelvis. A left ovarian cyst measures 3.1 cm in diameter. Otherwise, theadnexa appear normal. The stomach and small bowel have a normal overall appearance. The appendixis within normal limits. The colon appears normal. No adenopathy orabnormal fluid collections are seen IMPRESSION: 1. No acute findings Ordered By: SAIRA CID Interpreted By: Sadi Lerner MD, 05/10/2025 11:06 AM Saira Cid ANP-BC CT Final R esult * THINPREP IMAGING PAP REFLEX HPV MRNA E6/E7 (04/27/2014 3:00 PM CDT) REFLEX ADDED no [facility] P TO EPIC CONVERSION Comment: THIS TEST WAS PERFORMED AT [facility] [id number], [place] [address] 04/27/2014 3:00 PM CDT 04/27/2014 3:00 PM CDT Narrative [facility] TO EPIC CONVERSION - 05/02/2014 10:41 AM CDT This lab was migrated from [facility] and may be missing annotations or result text, please check the Media tab for the most complete results. us Kamila Crespo BUTTON MAKER AND INSTALLER PATHOLOGY/CYTOLOGY ORDERABLES F inal Result [facility] TO EPIC CONVERSION from Last 3 Months or Most Recently Relevant to Health Maintenance Insurance [facility]NAGEMENT [facility] Advance Directives * Full Code (Latest Code Status on File) Date Activated Date Inactivated Comments 08/14/2021 9:18 PM 08/15/2021 7:51 PM * Full Code Date Activated Date Inactivated Comments 06/21/2019 8:38 PM 06/23/2019 4:26 AM Care Teams Veterans Service Officer Relationship Specialty Start Date End Date Wanda Mattson MD [address] [place] [address] PCP - General FAMILY PRACTICE 08/13/21 Wanda Mattson MD [address] [place] [address] FAMILY PRACTICE 08/13/21
--- OUTSIDE RECORDS SUMMARY | 2025-05-10 16:24 | XMS_ITS | Encounter Summary ---
Author Organization [facility] Address [address] [place] [address] Care Team Providers Care Bread Dough Mixer Name Role Phone Wanda Mattson MD Primary Care Provider Wanda Mattson MD Unavailable [phone] Reason for Referral * Imaging (Emergency) - Closed Specialty Diagnoses / Procedures Referred By Contac t Referred To Contact RADIOLOGY Diagnoses Pelvic pain in female Procedures CT ABD+PEL W Saira Bush ANP-BC [address] [place] [id number] Phone: tel: fax: Referral ID Status Reason Start Date Expiration Date Visits Re quested Visits Authorized [id number] Closed 05/10/2025 08/08/2025 1 1 Reason for Visit * Imaging (Emergency) - Closed Specialty Diagnoses / Procedures Referred By Contac t Referred To Contact RADIOLOGY Diagnoses Pelvic pain in female Procedures CT ABD+PEL W Saira Bush, KANNAN-BC [address] [place] [id number] Phone: tel: fax: Referral ID Status Reason Start Date Expiration Date Visits Re quested Visits Authorized [id number] Closed 05/10/2025 08/08/2025 1 1 Encounter Details Date Type Department Care Team (Late st Contact Info) Description 05/10/2025 9:34 AM CDT Hospital Encounter [facility] [address] [address] Saira Cid, [facility]- [address] [place] [address] Arrived Social History Tobacco Use Types Packs/Day Years [...] AM CDT Legal Sex Female 9:16 PM HEAD OF ART Gender Identity Not on file Sexual Orientation Not on file documented as of this encounter Functional Status * RETIRED Are you deaf or do you have serious difficulty hearing Answer Date of Assessment Author Status No 08/14/2021 11:58 PM HEAD OF ART Acti ve * RETIRED Are you blind or do you have serious difficulty seeing, even when wearing glasses? Answer Date of Assessment Author Status No 08/14/2021 11:58 PM HEAD OF ART Acti ve * Do you have serious difficulty walking or climbing stairs? Answer Date of Assessment Author Status No 08/14/2021 11:58 PM HEAD OF ART Nate Sanchez RN Active * Do you have difficulty dressing or bathing? Answer Date of Assessment Author Status No 08/14/2021 11:58 PM HEAD OF ART Nate Sanchez RN Active * Because of a physical, mental, or emotional condition, do you have difficulty doing errands alone such as visiting a doctor's office or shopping? Answer Date of Assessment Author Status No 08/14/2021 11:58 PM Nate Willams RN Active documented as of this encounter Mental Status * Because of a physical, mental, or emotional condition, do you have serious difficulty concentrating, remembering, or making decisions? Answer Entry Date Author Status No 08/14/2021 11:58 PM Nate Willams RN Active documented in this encounter Plan of Treatment Not on file documented as of this encounter Procedures Procedure Name Priority Date/Time Associated Diagnosis Comments CT ABD+PEL W CON STAT 05/10/2025 10:1 6 AM CDT Pelvic pain in female documented in this encounter Results * CT ABD+PEL W CON (05/10/2025 10:16 AM CDT) Anatomical Region Laterality Modality Abdomen Computed Tomogra phy 05/10/2025 11:0 6 AM CDT Impressions 05/10/2025 11:09 AM CDT IMPRESSION: 1. No acute findings Ordered By: SAIRA CID Interpreted By: Sadi Lerner MD, 05/10/2025 11:06 AM Narrative 05/10/2025 11:09 AM CDT [address] [place] [address] CT ABDOMEN AND PELVIS WITH CONTRAST Exam [...] Procedure Note Sadi Lerner MD - 05/10/[address] [place] [place] [address] CT ABDOMEN AND PELVIS WITH CONTRAST Exam [...] Lerner MD, 05/10/2025 11:06 AM Saira Cid [facility]- CT Final R esult documented in this encounter Visit Diagnoses Diagnosis Pelvic pain in female Unspecified symptom associated with female genital organs documented in this encounter Administered Medications Inactive Administered Medications - up to 3 most recent administrations Medication Order MAR Action Action Date Dose Rate Site iopamidol (ISOVUE-370) 76 % injection 100 mL 100 mL, Intravenous, IMG once as needed, Contrast, 1 dose, Starting on Marcela 05/10/25 at 1016, Until Marcela 05/10/25 at 1014 Given 05/10/2025 10:14 AM CDT 100 mLs documented in this encounter Care Teams Bread Dough Mixer Relationship Specialty Start Date End Date Wanda Mattson MD [address] [place] [address] PCP - General FAMILY PRACTICE 08/13/21 Wanda Mattson MD [address] [place] [address] FAMILY PRACTICE 08/13/21 documented as of this encounter
--- OUTSIDE RECORDS SUMMARY | 2025-05-10 16:24 | XMS_ITS | Encounter Summary ---
Author Organization [facility] Address [address] [place] [address] Care Team Providers Care Life Insurance Actuary Name Role Phone Wanda Mattson MD Primary Care Provider Wanda Mattson MD Unavailable [phone] Encounter Details Date Type Department Care Team (Late st Contact Info) Description 05/10/2025 11:57 AM CDT Hospital Encounter [facility] [address] [phone] Saira Elias, [facility]- [address] [place] [address] Arrived Social History Tobacco Use Types Packs/Day [...] AM CDT Legal Sex Female 9:16 PM OVERSEER [employer]HER [employer] Gender Identity Not on file Sexual Orientation Not on file documented as of this encounter Functional Status * RETIRED Are you deaf or do you have serious difficulty hearing Answer Date of Assessment Author Status No 08/14/2021 11:58 PM OVERSEER K[employer]HER K[employer]EN Acti ve * RETIRED Are you blind or do you have serious difficulty seeing, even when wearing glasses? Answer Date of Assessment Author Status No 08/14/2021 11:58 PM OVERSEER KOSHER KITCHEN Acti ve * Do you have serious difficulty walking or climbing stairs? Answer Date of Assessment Author Status No 08/14/2021 11:58 PM OVERSEER K[employer]HER K[employer]EN Nate Sanchez RN Active * Do you have difficulty dressing or bathing? Answer Date of Assessment Author Status No 08/14/2021 11:58 PM OVERSEER [employer] K[employer]EN Nate Sanchez RN Active * Because of a physical, mental, or emotional condition, do you have difficulty doing errands alone such as visiting a doctor's office or shopping? Answer Date of Assessment Author Status No 08/14/2021 11:58 PM OVERSEER [employer]EN Nate Sanchez RN Active documented as of this encounter Mental Status * Because of a physical, mental, or emotional condition, do you have serious difficulty concentrating, remembering, or making decisions? Answer Entry Date Author Status No 08/14/2021 11:58 PM OVERSEER [employer] K[employer]EN Nate Sanchez RN Active documented in this encounter Plan of Treatment Pending Results Name Type Priority Associated Diagnoses Date /Time C-REACTIVE PROTEIN Lab Routine Pelvic pain syndrome 05/10/2025 12:05 PM CDT SED RATE, ERYTHROCYTE (ESR) Lab Routine Pelvic pain syndrome 05/10/2025 12:05 PM CDT URINE BACTERIA CULTURE Microbiology Routine Pelvic pain syndrome 05/10/2025 12:05 PM CDT URINALYSIS MICRO ONLY Lab STAT 04/2025 12:05 PM CDT Scheduled Orders Name Type Priority Associated Diagnoses Orde r Schedule C-REACTIVE PROTEIN Lab Routine Pelvic pain syndrome Once for 1 Occurrences starting 05/10/2025 until 05/10/2025 SED RATE, ERYTHROCYTE (ESR) Lab Routine Pelvic pain syndrome Once for 1 Occurrences starting 05/10/2025 until 05/10/2025 URINE BACTERIA CULTURE Microbiology Routine Pelvic pain syndrome Once for 1 Occurrences starting 05/10/2025 until 05/10/2025 URINALYSIS MICRO ONLY Lab STAT Onc e for 1 Occurrences starting 05/10/2025 until 05/10/2025 documented as of this encounter Procedures Procedure Name Priority Date/Time Associated Diagnosis Comments URINALYSIS AUTO DIP STAT 05/10/2025 1 2:05 PM CDT COMPREHENSIVE METABOLIC PANEL Routine 05/10/2025 12:05 PM CDT Pelvic pain syndrome CBC W/DIFF AUTOMATED Routine 05/10/2025 12:05 PM CDT Pelvic pain syndrome documented in this encounter Results * (ABNORMAL) URINALYSIS AUTO DIP (05/10/2025 12:05 PM CDT) COLOR (U) LIGHT YELLOW(A) YELLOW 05/10/2025 2:21 PM CDT [facility] TRANSPARENCY CLEAR CLEAR 05/10/2025 2:21 PM CDT [facility] SPECIFIC GRAVITY (U) >1.030(H) 1.001 - 1.030 05/10/2025 2:21 PM CDT [facility] U PH 6.0 5.0 - 9.0 05/10/2025 2:21 PM CDT [facility] LEUKOCYTES (U) 2+(A) NEGATIVE 05/10/2025 2:21 PM CDT [facility] NITRITES NEGATIVE NEGATIVE 05/10/2025 2:21 PM CDT [facility] PROTEIN RANDOM (U) NEGATIVE NEGATIVE 05/10/2025 2:21 PM CDT [facility] GLUCOSE (U) NORMAL NORMAL 05/10/2025 2:21 PM CDT [facility] KETONES MG/DL (U) NEGATIVE NEGATIVE 05/10/2025 2:21 PM CDT [facility] UROBILINOGEN 2.0(A) NORMAL EU/DL 05/10/2025 2:21 PM CDT [facility] BILIRUBIN (U) NEGATIVE NEGATIVE 05/10/2025 2:21 PM CDT [facility] BLOOD (U) NEGATIVE NEGATIVE 05/10/2025 2:21 PM CDT [facility] URINE MICROSCOPIC URINE MICROSCOPIC TO FOLLOW. 05/10/2025 2:21 PM CDT [facility] 05/10/2025 12:0 5 PM CDT us Saira Elias [facility]- URINE ORDERABLES Final Result [facility] [address] [place] [address], * (ABNORMAL) CBC W/DIFF AUTOMATED (05/10/2025 12:05 PM CDT) WBC 17.26(H) 4.50 - 11.00 x10'3/uL 05/10/2025 12:12 PM CDT [facility] RBC 4.46 4.00 - 5.20 x10'6/uL 05/10/2025 12:12 PM CDT [facility] HGB 13.5 12.0 - 16.0 G/DL 05/10/2025 12:12 PM CDT [facility] HCT 39.5 38.0 - 48.0 % 05/10/2025 12:12 PM CDT [facility] MCV 88.6 80.0 - 100.0 FL 05/10/2025 12:12 PM CDT [facility] MCH 30.3 26.0 - 34.0 PG 05/10/2025 12:12 PM CDT [facility] MCHC 34.2 31.0 - 37.0 G/DL 05/10/2025 12:12 PM CDT [facility] RDW 12.1 11.6 - 14.8 % 05/10/2025 12:12 PM CDT [facility] PLT 337 130 - 400 x10'3/uL 05/10/2025 12:12 PM CDT [facility] MPV 8.9 7.0 - 12.0 FL 05/10/2025 12:12 PM CDT [facility] CBC COMMENT AUTOMATED RBC MORPHOLOGY AND PLATELET EVALUATION NORMAL 05/10/2025 12:12 PM CDT [facility] NEUTROPHILS % 89.0(H) 40.0 - 74.0 % 05/10/2025 12:12 PM CDT [facility] LYMPHOCYTES % 5.5(L) 14.0 - 46.0 % 05/10/2025 12:12 PM CDT [facility] MONOCYTES % 4.4 4.0 - 13.0 % 05/10/2025 12:12 PM CDT [facility] EOSINOPHILS 0.3 0.0 - 7.0 % 05/10/2025 12:12 PM CDT [facility] BASOPHILS 0.2 0.0 - 3.0 % 05/10/2025 12:12 PM CDT [facility] IMMATURE GRANS % 0.6(H) 0.0 - 0.43 % 05/10/2025 12:12 PM CDT [facility] NRBC % 0.0 % 05/10/2025 12:12 PM CDT [facility] ABS. NEUTROPHILS TOTAL 15.36(H) 1.69 - 7.81 x10'3/uL 05/10/2025 12:12 PM CDT [facility] ABS. LYMPHOCYTES 0.95 0.21 - 5.42 x10'3/uL 05/10/2025 12:12 PM CDT [facility] ABS. MONOCYTES 0.76 0.04 - 1.37 x10'3/uL 05/10/2025 12:12 PM CDT [facility] ABS. EOSINOPHILS 0.05 0.00 - 0.68 x10'3/uL 05/10/2025 12:12 PM CDT [facility] ABS. BASOPHILS 0.04 0.00 - 0.08 x10'3/uL 05/10/2025 12:12 PM CDT [facility] ABS. IMMATURE GRANULOCYTES 0.10(H) 0.00 - 0.06 x10'3/uL 05/10/2025 12:12 PM CDT [facility] ABS. NUCLEATED RBC'S 0.00 0.00 - 0.01 x10'3/uL 05/10/2025 12:12 PM CDT [facility] 05/10/2025 12:0 5 PM CDT us Saira Elias [facility]- [facility] Final R esult [address] [place] [address], * (ABNORMAL) COMPREHENSIVE METABOLIC PANEL (05/10/2025 12:05 PM CDT) GLUCOSE 105(H) 70 - 99 MG/DL 05/10/2025 12:26 PM CDT [facility] BUN 8 7 - 18 MG/DL 05/10/2025 12:26 PM CDT [facility] CREATININE S/P/B 0.67 0.50 - 1.20 MG/DL 05/10/2025 12:26 PM CDT [facility] SODIUM S/P/B 131(L) 136 - 145 MMOL/L 05/10/2025 12:26 PM CDT [facility] POTASSIUM S/P/B 4.2 3.5 - 5.1 MMOL/L 05/10/2025 12:26 PM CDT [facility] CHLORIDE S/P/B 97(L) 100 - 108 MMOL/L 05/10/2025 12:26 PM CDT [facility] CO2 28.2 21.0 - 32.0 MMOL/L 05/10/2025 12:26 PM CDT [facility] CALCIUM S/P/B 9.1 8.5 - 10.1 MG/DL 05/10/2025 12:26 PM T [facility] BILIRUBIN TOTAL S/P/B 1.1 0.2 - 1.2 MG/DL 05/10/2025 12:26 PM T [facility] Comment: THIS ASSAY IS NOT RECOMMENDED FOR PATIENTS UNDERGOING TREATMENT WITH ELTROMBOPAG DUE TO THE POTENTIAL FOR FALSELY ELEVATED RESULTS. TOTAL PROTEIN S/P/B 7.5 6.4 - 8.2 G/DL 05/10/2025 12:26 PM CDT [facility] ALBUMIN S/P/B 4.2 3.4 - 5.0 G/DL 05/10/2025 12:26 PM CDT [facility] AST 17 15 - 37 U/L 05/10/2025 12:26 PM CDT [facility] ALT 22 14 - 55 U/L 05/10/2025 12:26 PM CDT [facility] ALKALINE PHOSPHATASE S/P/B 69 50 - 136 U/L 05/10/2025 12:26 PM T [facility] ANION GAP 5.8 5.0 - 15.0 MMOL/L 05/10/2025 12:26 PM T [facility] BUN CREATININE RATIO 11.9 6 - 26 05/10/2025 12:26 PM T [facility] A/G RATIO 1.3 1.0 - 2.5 RATIO 05/10/2025 12:26 PM T [facility] GFR ESTIMATE >90 >90 ML/MIN/1.7 3 M2 05/10/2025 12:26 PM T [facility] Comment: NOTE: eGFR is not calculated for patients <18 years of age. This is an estimated GFR calculation using the new CKD EPI creatinine equation without race and so does not require a correction factor for race. This estimated GFR should not be used for calculating drug doses. 05/10/2025 12:0 5 PM CDT us Saira Elias AN[facility]- LABORATORY Final R esult [facility] [address] [place] [address], documented in this encounter Visit Diagnoses Diagnosis Pelvic pain syndrome Pelvic congestion syndrome documented in this encounter Care Teams Life Insurance Actuary Relationship Specialty Start Date End Date Wanda Mattson MD [address] [place] [id number] PCP - General FAMILY PRACTICE 08/13/21 Wanda Mattson MD [address] [place] [address] FAMILY PRACTICE 08/13/21 documented as of this encounter
--- OUTSIDE RECORDS SUMMARY | 2025-05-10 16:24 | XMS_ITS | Encounter Summary ---
Author Organization [facility] Address [address] [place] [address] Care Team Providers Care Construction Coordinator Name Role Phone Wanda Mattson MD Primary Care Provider Wanda Mattson MD Unavailable [phone] Encounter Details Date Type Department Care Team (Latest Contact Info) Description 05/10/2025 Travel Social History Tobacco Use Types Packs/Day Years [...] AM CDT Legal Sex Female 9:16 PM LABOR RELATIONS REPRESENTATIVE Gender Identity Not on file Sexual Orientation Not on file documented as of this encounter Functional Status * RETIRED Are you deaf or do you have serious difficulty hearing Answer Date of Assessment Author Status No 08/14/2021 11:58 PM LABOR RELATIONS REPRESENTATIVE Acti ve * RETIRED Are you blind or do you have serious difficulty seeing, even when wearing glasses? Answer Date of Assessment Author Status No 08/14/2021 11:58 PM LABOR RELATIONS REPRESENTATIVE Acti ve * Do you have serious difficulty walking or climbing stairs? Answer Date of Assessment Author Status No 08/14/2021 11:58 PM Nate Willams RN Active * Do you have difficulty dressing or bathing? Answer Date of Assessment Author Status No 08/14/2021 11:58 PM Nate Willams RN Active * Because of a physical, [...] on filedocumented in this encounter Care Teams Construction Coordinator Relationship Specialty Start Date End Date Wanda Mattson MD [address] [place] [address] PCP - General FAMILY PRACTICE 08/13/21 Wanda Mattson MD [address] [place] [address] FAMILY PRACTICE 08/13/21 documented as of this encounter
--- NOTE | 2025-05-10 16:36 | ECG_ITS ---
Test Date: 2025-05-10 18:07:35 Measurements Intervals [place] Rate: 117 P: 50 MO: 141 QRS: 58 QRSD: 84 T: 184 QT: 341 QTc: 477 Interpretive Statements SINUS TACHYCARDIA LEFT ATRIAL ENLARGEMENT CONSIDER ANTERIOR INFARCT, AGE INDETERMINATE MINIMAL Q WAVES- ANTEROLAT/INF LEADS ST-T WAVE ABNORMALITY IN ANTEROLATERAL LEADS- CONSIDER ISCHEMIA BASELINE WANDER- V1 ABNORMAL ECG No previous ECG available for comparison Electronically Signed On 05-10-2025 20:20:05 CDT by Nikita Hopson D.O.
--- NOTE | 2025-05-10 16:40 | ED_ITS ---
HPI - Abdominal Pain General Chief Complaint: Abdominal Pain <Sangeeta Marino PA-C - Last Filed: 05/10/25 16:43> Stated Complaint: abdominal pain, fever <Sangeeta Marino PA-C - Last Filed: 05/10/25 16:43> Time Seen by Provider: 05/10/25 18:22 <Sangeeta Marino PA-C - Last Filed: 05/10/25 16:43> Focused HPI: 30-year-old female presents to the emergency department for lower abdominal pain that started yesterday. Patient states the pain started in her lower abdomen has to her periumbilical region and at times radiates to her LLQ. She states pain is worse when walking and when hitting bumps in the road. She reports associated decreased po intake. She went to her PCP today at [facility] and had lab work outpatient CT scan with contrast performed the CT scan her abdomen and pelvis done at 9:00 a.m. this morning which showed no acute findings. Patient had outpatient lab work performed at 11:00 a.m. which revealed leukocytosis of 17.26. The patient was contacted by her PCP advised to come to the ED for further evaluation. She states prior to leaving her house her temperature was 101?. She has not had any antipyretics since she received Toradol at the clinic around 8:00 a.m. this morning. She denies dysuria, hematuria, vaginal discharge or concern for STDs, prior abdominal surgeries, flank pain. Denies recent steroid use. GENERAL: Well-appearing, well-nourished, and in no acute distress. HEAD: Normocephalic, atraumatic. CHEST: Clear to auscultation. ?No respiratory distress. ABD: Tenderness to the periumbilical region and right lower quadrant. Negative Rovsing sign obturator sign. No CVA tenderness HEART: Regular rate and rhythm.? NEURO: ?Alert and oriented x3. Patient screened in triage and initial orders placed.? ?Additional care and disposition to be based upon?diagnostic testing and treatment. <ALONZO Manzano Last Filed: 05/10/25 16:43> Related Data Allergies/Adverse Reactions: Allergies Allergy/AdvReac Type Severity Reaction Status Date / Time cefaclor (From [facility]) Allergy Hives Verified 05/10/25 16:21 <Sangeeta Marino PA-C - Last Filed: 05/10/25 16:43> Review of Systems 2 Review of Systems: All systems reviewed & are unremarkable except as noted in HPI and below <Carri Colindres, SAMM - Last Filed: 05/10/25 21:20> Exam 2 Narrative: GENERAL: Well appearing, well-nourished, non-toxic, in no acute distress. HEAD: Normocephalic, atraumatic. NECK: Supple. No adenopathy, no masses. RESPIRATORY: Airway patent, respirations nonlabored. Clear to auscultation bilaterally, no rales, rhonchi, wheezing. CARDIOVASCULAR: Regular rate and rhythm without murmurs, rubs, or gallops. Peripheral pulses 2+ and equal bilaterally. -CVA tenderness ABDOMINAL: Soft, right upper quadrant, left upper quadrant, right lower quadrant, left lower quadrant tenderness with palpation, nondistended. Normoactive BS. MUSCULOSKELETAL: Moves all extremities. Strength/ROM intact without gross deformities. SKIN: Warm, dry, normal color. No rashes. NEURO: A&O X3. Speech clear. Cranial nerves II-XII intact. No ataxic movements. PSYCHIATRIC: Appropriate mood and affect. Normal interaction. <Carri Colindres, SAMM - Last Filed: 05/10/25 21:20> Course Vital Signs Vital signs: Vital Signs Temperature 37.3 C 05/10/25 16:24 Pulse Rate 129 H 05/10/25 16:24 Respiratory Rate 16 05/10/25 16:24 Blood Pressure 111/55 L 05/10/25 16:24 Pulse Oximetry 99 05/10/25 16:24 Oxygen Delivery Room Air 05/10/25 16:24 Temperature 37.3 C 05/10/25 16:24 Pulse Rate 75 05/10/25 20:45 Respiratory Rate 16 05/10/25 20:45 Blood Pressure 115/72 05/10/25 20:45 Pulse Oximetry 100 05/10/25 20:45 Oxygen Delivery Room Air 05/10/25 16:24 <Sangeeta Marino PA-C - Last Filed: 05/10/25 16:43> Vital Signs Temperature 37.3 C 05/10/25 16:24 Pulse Rate 129 H 05/10/25 16:24 Respiratory Rate 16 05/10/25 16:24 Blood Pressure 111/55 L 05/10/25 16:24 Pulse Oximetry 99 05/10/25 16:24 Oxygen Delivery Room Air 05/10/25 16:24 Temperature 37.3 C 05/10/25 16:24 Pulse Rate 75 05/10/25 20:45 Respiratory Rate 16 05/10/25 20:45 Blood Pressure 115/72 05/10/25 20:45 Pulse Oximetry 100 05/10/25 20:45 Oxygen Delivery Room Air 05/10/25 16:24 <Carri Colindres, SERVICES EXECUTIVE - Last Filed: 05/10/25 21:20> MDM - Abdominal Pain MDM Narrative Medical decision making narrative: 30-year-old female presents to the emergency department for lower abdominal pain that started yesterday. Patient states the pain started in her lower abdomen has to her periumbilical region and at times radiates to her LLQ. She states pain is worse when walking and when hitting bumps in the road. She reports associated decreased po intake. She went to her PCP today at [facility] and had lab work outpatient CT scan with contrast performed the CT scan her abdomen and pelvis done at 9:00 a.m. this morning which showed no acute findings. Patient had outpatient lab work performed at 11:00 a.m. which revealed leukocytosis of 17.26. The patient was contacted by her PCP advised to come to the ED for further evaluation. She states prior to leaving her house her temperature was 101?. She has not had any antipyretics since she received Toradol at the clinic around 8:00 a.m. this morning. She denies dysuria, hematuria, vaginal discharge or concern for STDs, prior abdominal surgeries, flank pain. Denies recent steroid use. Labs Ordered: CBC, CMP, lipase, lactic acid, CRP, COVID/flu/RSV, PTT, INR Imaging Ordered: CT abdomen pelvis, pelvic ultrasound Medications Ordered: 3 L normal saline IV bolus, morphine 4 mg, levofloxacin 750 mg IV Results: Patient's CT scan indicates Normal appendix. Trace inflammatory change surrounding the bladder for which cystitis is suspected. Left ovarian cyst is redemonstrated. Patient's CBC indicates white blood cell count 21.5. Her CMP indicates a sodium 135, carbon dioxide of 19, anion gap of 13, creatinine of 0.65, AST of 37. Patient's CRP is 8.0. Her urinalysis indicates 2+ ketones, 3+ leukocytes, and 21-50 wbcs. Diagnosis: Urinary tract infection Patient Education/Shared MDM: Results of lab work and imaging shared with patient. Her blood work does not indicate an acute kidney injury or sepsis, so patient will be discharged home with oral antibiotics. She endorses improvement of symptoms following medication administration. Patient strongly advised to maintain hydration status upon discharge and follow-up with her PCP in 2-3 days. She will be discharged home with a prescription for Bactrim and peridium. Strict return precautions provided. Patient verbalized understanding and is in agreement with plan. Vital signs stable at time of discharge. All questions answered. <Carri Colindres APRN - Last Filed: 05/10/25 21:20> Differential Diagnosis Differential diagnosis: Likely abdominal pain, acute appendicitis, calculus of kidney, constipation and gastroenteritis <Carri Colindres APRN - Last Filed: 05/10/25 21:20> Lab Data Attestation: I reviewed the patient's lab results. <Carri Colindres APRN - Last Filed: 05/10/25 21:20> Result diagrams: 05/10/25 18:19 05/10/25 18:19 <Sangeeta Marino PA-C - Last Filed: 05/10/25 16:43> Labs: Lab Results 05/10/25 05/10/25 Range/Units 18:19 18:20 WBC 21.5 H (4.5-10.0) K/mm3 RBC 4.26 (4.2-5.4) M/mm3 Hgb 12.9 (12.0-15.0) g/dL Hct 38.2 (37.0-47.0) % MCV 89.7 (80-100) fl MCH 30.3 (26-34) pg MCHC 33.8 (32-36) g/dl RDW 12.3 (11.5-14.5) % Plt Count 345 (150-375) k/mm3 MPV 9.2 (7.4-10.4) fl Immature Gran % (Auto) 0.5 (0-0.5) % Neut % (Auto) 89.4 H (45.5-73.1) % Lymph % (Auto) 5.9 L (18.3-44.2) % Gates % (Auto) 4.1 (2.6-8.5) % Eos % (Auto) 0.0 (0-4.4) % Baso % (Auto) 0.1 L (0.2-1.2) % Lymph # (Auto) 1.26 (0.9-3.2) K/mm3 Gates # (Auto) 0.9 H (0.1-0.6) K/mm3 Eos # (Auto) 0.0 (0-0.3) K/mm3 Baso # (Auto) 0.0 (0.0-0.1) K/mm3 Abs Immat Gran (auto) 0.11 H (0.00-0.031) K/mm3 Absolute Neuts (auto) 19.2 H (1.3-6.7) K/mm3 Absolute Nucleated RBC 0.000 (0.0-0.012) K/mm3 Nucleated RBC % 0.0 (0.0-0.2) % PT 14.4 (11.1-14.7) Seconds INR 1.1 APTT 27.1 (22.3-36.8) Seconds Sodium 135 L (137-145) mmol/L Potassium 4.0 (3.4-5.0) mmol/L Chloride 103 (98-107) mmol/L Carbon Dioxide 19 L (22-30) mmol/L Anion Gap 13 H (4-12) mmol/L BUN 9 (7-17) mg/dL Creatinine 0.65 L (0.7-1.0) mg/dL Estim Creat Clear Calc 92 ml/min Estimated GFR > 60 (59 - ) Glucose 98 (65-110) mg/dL Lactic Acid 1.2 (0.7-2.0) mmol/L Calcium 9.6 (8.4-10.2) mg/dL Total Bilirubin 1.3 (0.2-1.3) mg/dL AST 37 H (14-36) U/L ALT 27 (6-35) U/L Alkaline Phosphatase 75 (38-126) U/L C-Reactive Protein 8.0 H (<1.0) mg/dL Total Protein 8.4 H (6.3-8.2) g/dL Albumin 4.8 (3.5-5.1) g/dL Lipase 31 (23-300) U/L Urine Color Yellow (Yellow) Urine Appearance Clear (Clear) Urine pH 6.0 (5.0-9.0) Ur Specific Mary[place] 1.016 (1.001-1.035) Urine Protein Negative (Negative) mg/dL Urine Glucose (UA) Negative (Negative) mg/dL Urine Ketones 2+ H (Negative) mg/dL Ur Blood (Man) Negative (Negative) Urine Nitrate Negative (Negative) Urine Bilirubin Negative (Negative) Urine Urobilinogen 1.0 (<2.0) mg/dL Leukocyte Esterase Rfl 3+ H (Negative) GEORGE/UL Urine RBC 0-2 (0-2) /hpf Urine WBC 21-50 H (0-3) /hpf Ur Squamous Epith Cells Few (Few) /hpf Urine Bacteria None seen /hpf Urine Casts 0-2 POC Urine HCG, Qual Negative (Negative) Influenza A (RT-PCR) Negative (Negative) Influenza B (RT-PCR) Negative (Negative) RSV (RT-PCR) Negative (Negative) SARS-CoV-2 RNA (RT-PCR) Negative (Negative) <Sangeeta Marino PA-C - Last Filed: 05/10/25 16:43> Lab Results 05/10/25 05/10/25 Range/Units 18:19 18:20 WBC 21.5 H (4.5-10.0) K/mm3 RBC 4.26 (4.2-5.4) M/mm3 Hgb 12.9 (12.0-15.0) g/dL Hct 38.2 (37.0-47.0) % MCV 89.7 (80-100) fl MCH 30.3 (26-34) pg MCHC 33.8 (32-36) g/dl RDW 12.3 (11.5-14.5) % Plt Count 345 (150-375) k/mm3 MPV 9.2 (7.4-10.4) fl Immature Gran % (Auto) 0.5 (0-0.5) % Neut % (Auto) 89.4 H (45.5-73.1) % Lymph % (Auto) 5.9 L (18.3-44.2) % Gates % (Auto) 4.1 (2.6-8.5) % Eos % (Auto) 0.0 (0-4.4) % Baso % (Auto) 0.1 L (0.2-1.2) % Lymph # (Auto) 1.26 (0.9-3.2) K/mm3 Gates # (Auto) 0.9 H (0.1-0.6) K/mm3 Eos # (Auto) 0.0 (0-0.3) K/mm3 Baso # (Auto) 0.0 (0.0-0.1) K/mm3 Abs Immat Gran (auto) 0.11 H (0.00-0.031) K/mm3 Absolute Neuts (auto) 19.2 H (1.3-6.7) K/mm3 Absolute Nucleated RBC 0.000 (0.0-0.012) K/mm3 Nucleated RBC % 0.0 (0.0-0.2) % PT 14.4 (11.1-14.7) Seconds INR 1.1 APTT 27.1 (22.3-36.8) Seconds Sodium 135 L (137-145) mmol/L Potassium 4.0 (3.4-5.0) mmol/L Chloride 103 (98-107) mmol/L Carbon Dioxide 19 L (22-30) mmol/L Anion Gap 13 H (4-12) mmol/L BUN 9 (7-17) mg/dL Creatinine 0.65 L (0.7-1.0) mg/dL Estim Creat Clear Calc 92 ml/min Estimated GFR > 60 (59 - ) Glucose 98 (65-110) mg/dL Lactic Acid 1.2 (0.7-2.0) mmol/L Calcium 9.6 (8.4-10.2) mg/dL Total Bilirubin 1.3 (0.2-1.3) mg/dL AST 37 H (14-36) U/L ALT 27 (6-35) U/L Alkaline Phosphatase 75 (38-126) U/L C-Reactive Protein 8.0 H (<1.0) mg/dL Total Protein 8.4 H (6.3-8.2) g/dL Albumin 4.8 (3.5-5.1) g/dL Lipase 31 (23-300) U/L Urine Color Yellow (Yellow) Urine Appearance Clear (Clear) Urine pH 6.0 (5.0-9.0) Ur Specific Mary[place] 1.016 (1.001-1.035) Urine Protein Negative (Negative) mg/dL Urine Glucose (UA) Negative (Negative) mg/dL Urine Ketones 2+ H (Negative) mg/dL Ur Blood (Man) Negative (Negative) Urine Nitrate Negative (Negative) Urine Bilirubin Negative (Negative) Urine Urobilinogen 1.0 (<2.0) mg/dL Leukocyte Esterase Rfl 3+ H (Negative) GEORGE/UL Urine RBC 0-2 (0-2) /hpf Urine WBC 21-50 H (0-3) /hpf Ur Squamous Epith Cells Few (Few) /hpf Urine Bacteria None seen /hpf Urine Casts 0-2 POC Urine HCG, Qual Negative (Negative) Influenza A (RT-PCR) Negative (Negative) Influenza B (RT-PCR) Negative (Negative) RSV (RT-PCR) Negative (Negative) SARS-CoV-2 RNA (RT-PCR) Negative (Negative) <Carri Colindres, SAMM - Last Filed: 05/10/25 21:20> Imaging Data Attestation: I personally reviewed and interpreted this imaging study as follows: < Carri Colindres, SERVICES EXECUTIVE - Last Filed: 05/10/25 21:20> Radiologist's impression: ITS Impressions Chest X-Ray 05/10/25 17:22 IMPRESSION: 1. No acute cardiopulmonary disease. Pelvis Ultrasound 05/10/25 17:34 IMPRESSION: Simple cyst within the left ovary which does not meet size criteria for follow- up in a patient of this age. Dopplerable flow is identified bilaterally for which torsion is not present. Abdomen/Pelvis CT 05/10/25 19:57 IMPRESSION: Normal appendix. Trace inflammatory change surrounding the bladder for which cystitis is suspected. Left ovarian cyst is redemonstrated. <Sangeeta Marino PA-C - Last Filed: 05/10/25 16:43> ITS Impressions Chest X-Ray 05/10/25 17:22 IMPRESSION: 1. No acute cardiopulmonary disease. Pelvis Ultrasound 05/10/25 17:34 IMPRESSION: Simple cyst within the left ovary which does not meet size criteria for follow- up in a patient of this age. Dopplerable flow is identified bilaterally for which torsion is not present. Abdomen/Pelvis CT 05/10/25 19:57 IMPRESSION: Normal appendix. Trace inflammatory change surrounding the bladder for which cystitis is suspected. Left ovarian cyst is redemonstrated. <Carri Colindres APRN - Last Filed: 05/10/25 21:20> Discharge Plan Discharge Clinical Impression: Cystitis, Abdominal pain <Sangeeta Marino PA-C - Last Filed: 05/10/25 16:43> Patient Disposition: Home <ALONZO Manzano Last Filed: 05/10/25 16:43> Condition: Stable <ALONZO Manzano Last Filed: 05/10/25 16:43> Instructions: Antibiotic Form, Urinary Tract Infection in Women (ED) <Sangeeta Marino PA-C - Last Filed: 05/10/25 16:43> Additional Instructions: Please return to the ER with any worsening symptoms. Follow-up with primary care provider in 2-3 days to make sure you are healing. Take all medications as prescribed, including regularly scheduled medications. Complete your full dose of antibiotics. Please remember to drink lots of water. <Sangeeta Marino PA-C - Last Filed: 05/10/25 16:43> Patient Language: Cambodian <ALONZO Manzano Last Filed: 05/10/25 16:43> Prescriptions: New phenazopyridine [Pyridium] 200 mg tablet 200 mg PO TID Qty: 6 0RF sulfamethoxazole-trimethoprim [Bactrim DS] 800-160 mg tablet 1 tablet PO Q12H 5 Days Qty: 10 0RF <ALONZO Manzano Last Filed: 05/10/25 16:43> Follow-up/Referrals: Wanda Mattson MD [Primary Care Provider] - <ALONZO Manzano Last Filed: 05/10/25 16:43> Time of Disposition: 21:20 <ALONZO Manzano Last Filed: 05/10/25 16:43> 21:20 <Carri Colindres, SERVICES EXECUTIVE - Last Filed: 05/10/25 21:20>
[2025-05-10 18:22] LABS: BEDSIDEPREGUCG Negative (Negative)
[2025-05-10 18:28] LABS: Hematocrit 38.2 % (37.0-47.0); Hemoglobin 12.9 g/dL (12.0-15.0); Immature Granulocyte Percent A 0.5 % (0-0.5); Lymphocytes Absolute Auto 1.26 K/mm3 (0.9-3.2); Mean Corpuscular HGB Conc 33.8 g/dl (32-36); Mean Corpuscular Hemoglobin 30.3 pg (26-34); Mean Corpuscular Volume 89.7 fl (80-100); Nucleated Red Blood Cells Absolute Auto 0.000 K/mm3 (0.0-0.012); Nucleated Red Blood Cells Perc 0.0 % (0.0-0.2); Platelet Count Result 345 k/mm3 (150-375); Red Blood Count 4.26 M/mm3 (4.2-5.4); White Blood Count 21.5 K/mm3 (4.5-10.0)
[2025-05-10 18:35] LABS: Add Urine Microscopic? YES; Appearance Urine Clear (Clear); Glucose Urine UA Negative (Negative); Leukocyte Esterase Ur 3+ LEU/UL (Negative); Nitrate Urine Negative (Negative); Non Pathogenic Casts 0-2; Specific Grav Ur 1.016 (1.001-1.035)
[2025-05-10 18:48] LABS: INR 1.1; Prothrombin Time 14.4 Seconds (11.1-14.7)
[2025-05-10 18:49] LABS: Partial Thromboplastin Time 27.1 Seconds (22.3-36.8)
[2025-05-10 18:53] LABS: Alanine Aminotransferase 27 U/L (6-35); Albumin Level 4.8 g/dL (3.5-5.1); Alkaline Phosphatase 75 U/L (38-126); Anion Gap 13 mmol/L (4-12); Aspartate Amino Transferase 37 U/L (14-36); Bilirubin,Total 1.3 mg/dL (0.2-1.3); Blood Urea Nitrogen 9 mg/dL (7-17); Calcium 9.6 mg/dL (8.4-10.2); Carbon Dioxide 19 mmol/L (22-30); Chloride 103 mmol/L (98-107); Estimated CRCL calculation 92 ml/min; Estimated Glomerular Filt Rate > 60; Glucose 98 mg/dL (65-110); Lipase 31 U/L (23-300); Potassium 4.0 mmol/L (3.4-5.0); Sodium 135 mmol/L (137-145); Total Protein 8.4 g/dL (6.3-8.2)
[2025-05-10 19:12] LABS: Influenza A QL RT-PCR Negative (Negative); Influenza B QL RT-PCR Negative (Negative); RSV RNA, RT-PCR Negative (Negative); SARS-CoV-2 RNA PCR Negative (Negative)
[2025-05-10 19:16] LABS: CRP 8.0 mg/dL (<1.0)
[2025-05-10] MEDS: SODIUM CHLORIDE 0.9% IV 1,000 ML 999 ML IV CONT ×2 (19:53→19:54)
[2025-05-10] MEDS: MORPHINE SULFATE (*CRX) 4 MG/ML INJ IV PUSH (19:54)
[2025-05-10] MEDS: levoFLOXacin 750 MG/D5W 150 ML 750 MG/150 ML BAG 100 MG IVPB (19:54)
--- OUTSIDE RECORDS SUMMARY | 2025-05-10 20:09 | XMS_ITS ---
Author Organization [facility] dicine Address [address] [place] [address] Care Team Providers Care Watch Engineer Name Role Phone Dr. Rusty Padron Primary Care Provider [phone] Saira Elias Unavailable [phone] Results Component Value Reference Range Notes Urinalysis (hospital) Reviewed date:05/10/2025 02:28:25 PM Interpretation: Performing Lab: Notes/Report: CT ABD+PEL W CON Reviewed date:05/10/2025 11:30:18 AM Interpretation: Performing Lab: Notes/Report: Comprehensive Metabolic Pane l Reviewed date:05/10/2025 01:50:54 PM Interpretation: Performing Lab: Notes/Report: CBC w Auto Diff Reviewed date:05/10/2025 12:26:41 PM Interpretation: Performing Lab: Notes/Report: Reason For Referral Reason HARRISON General surgery Diagnosis 1 Acute abdominal pain (R10.9) Referral Organization [facility] Referring Provider First Name Saira Referring Provider [facility] [place] Referring Provider Speciality Nurse Prac titioner Referred Provider Specialty Surgery Referral Priority Stat REASON FOR VISIT per [facility] Medications Medication SIG (Take, Route, Frequency, Duration) Notes Start Date End Date Status Adderall 10 MG Tablet 1 tablet Oral two times a day; Duration: 30 days please provide generic 05/03/2025 Active Retin-A 0.05 % Cream External every day; Duration: 0 07/01/2023 Active Hydrocortisone 2.5 % Ointment External two times a day; Duration: 0 02/09/2022 Active Problems Problem Type SNOMED Code ICD Code Onset Dates Problem Status W/U Status Risk Notes Problem Bandemia (189931154) Bandemia (D72.825) Active confirmed Vital Signs Temperature 97.1 degrees Fahrenheit 05/10/20 25 Blood pressure systolic 98 mm Hg 05/10/20 25 Blood pressure diastolic 68 mm Hg 025 Heart Rate 88 /min 05/10/2025 Oximetry 99 % 05/10/2025 Encounters Encounter Location Date Provider Diagnosis [address] [id number] 05/10/2025 Saira Elias Pelvic pain in female R10.2 ; Bandemia D72.825 and Fever, unspecified R50.9 Assessments Encounter Date Diagnosis (ICD Code) Assessment Notes Treatment Notes Treatment Clinical Notes Section Notes 05/10/2025 Pelvic pain in female (ICD-10 - R10.2) Periumbilical pain that has moved into pelvic region. Intense yesterday, and improved while lying flat, and now pain has worsened as the day has gone on. CT abd/pelvis showed no acute findings, left 3.1cm left ovarian cyst . WBC is 17,000, neutrophils 89%. UA Showed 2+ leuks. Called Dr. Lerner to relook at CT scan of abd/pelvis and no changes on relook. -Due to worsening sx's of fever and pain. Will get stat surgical evaluation and will need to go ER. Patient opted to go to [facility]. Elba Mojica RN called report 05/10/2025 Bandemia (ICD-10 - D72.825) 05/10/2025 Fever, unspecified (ICD-10 - R50.9) Plan Of Treatment Treatment Notes Assessment Notes Pelvic pain in female Periumbilical pain that has moved into pelvic region. Intense yesterday, and improved while lying flat, and now pain has worsened as the day has gone on. CT abd/pelvis showed no acute findings, left 3.1cm left ovarian cyst . WBC is 17,000, neutrophils 89%. UA Showed 2+ leuks. Called Dr. Lerner to relook at CT scan of abd/pelvis and no changes on relook. -Due to worsening sx's of fever and pain. Will get stat surgical evaluation and will need to go ER. Patient opted to go to [facility]. Elba Mojica RN called report Pending Test Test Name Order Date Urine Culture (Hospital) 05/10/2025 C-Reactive Protein 05/10/[address] ABD+PEL WO CON 05/10/2025 Referrals Referral Date Details 05/10/2025 05/10/2025, [facility]ISON Gen eral surgery Medications Administered Medication Instructions Date of Administration Dosage Notes Ketorolac Tromethamine 05/10/2025 0.5 mg History and Physical Notes * HPI (History of Present Illness) Category Sub-Category Detail Notes Category Not es HPI Claudia Lewis reports onset of severe, sharp pain very low in the abdomen yesterday, accompanied by significant bloating. The pain was intense enough that she could not sit down and had to stand, with her whole body feeling cold and sweaty. This episode lasted approximately 15 to 30 minutes, after which the pain improved but left lingering soreness and tenderness. She describes the current pain as sore, tender, and uncomfortable, especially when first sitting down or when moving around. The pain is not similar to menstrual cramps; her last menstrual period ended last week. She denies use of any control or IUD. She reports no urinary symptoms, including no pain, burning, blood in the urine, urgency, or frequency. She has no history of kidney stones. She did not have a fever but did experience a sensation of chills during the episode. She denies nausea, vomiting, and constipation. She notes a lack of appetite last night and did not eat due to the pain. She observed that she was very bloated, more than usual, and that the pain was mostly situated around her belly button area last night when lying down. She reports no concern for . Examination Category Sub-Category Detail Notes Category Not es General Examination General appearance: alert, p leasant, well-nourished and in no acute distress Head: normocephalic, atrau matic Eyes: both eyes, conjuncti va clear Ears: both ears, auditory canal clear, tympanic membrane intact and clear Nose: nares patent, no les ions Throat: clear, no erythema, no exudate, pharynx normal Heart: regular rate and rhy thm without murmurs, gallops, clicks or rubs, S1 and S2 are normal and no S3 and S4 gallop Lungs: clear to auscultatio n bilaterally, with good air movement and no rales, rhonchi or wheezes Abdomen: Tenderness across lo wer abdomen in suprapubic region. Slightly bloated on palpation. Hurts to walk and painful to be upright Neurologic: alert and oriented Skin: skin is warm and dry , with no rashes, good skin turgor and normal hair distribution Lymph nodes: no cervical lymphade nopathy Psych: normal affect / mood Oral cavity: normal, mucosa moist , tongue is midline Consultation Request Notes Referral Date Referring Provider Referred Provider Not es 05/10/2025 Saira Elias ASAP Genera l surgery Progress Notes * Ladonna LEWIShDOB:1995 (30 yo F)Acc No.[id number]:05/10/2025 Patient: Claudia Puckett Provider: Nayeli Elias NP :1995 A ge:30 Y S ex:Female Date:05/10/2025 Phone: Address:[address] [place] [address] , [id number] Pcp:Dr. Rusty Padron Subjective: * Chief Complaints: * p jeet Chávez * HPI: H PI: Claudia Lewis reports onset of severe, sharp pain very low in the abdomen yesterday, accompanied by significant bloating. The pain was intense enough that she could not sit down and had to stand, with her whole body feeling cold and sweaty. This episode lasted approximately 15 to 30 minutes, after which the pain improved but left lingering soreness and tenderness. She describes the current pain as sore, tender, and uncomfortable, especially when first sitting down or when moving around. The pain is not similar to menstrual cramps; her last menstrual period ended last week. She denies use of any control or IUD. She reports no urinary symptoms, including no pain, burning, blood in the urine, urgency, or frequency. She has no history of kidney stones. She did not have a fever but did experience a sensation of chills during the episode. She denies nausea, vomiting, and constipation. She notes a lack of appetite last night and did not eat due to the pain. She observed that she was very bloated, more than usual, and that the pain was mostly situated around her belly button area last night when lying down. She reports no concern for . * ROS: G eneral / Constitutional: Patient complains of S light chills when pain was intense.? G astrointestinal: Patient complains of L ow abd/pelvic pain intense yesterday and lingering discomfort today that has worsned as the day has gone on. Painful to walk up right and walking is painful. G ynecology: Patient denies a bnormal bleeding, hot flashes, and mesntrual cycle was normal last week. Denies vaginal symptoms of discharge. P ainful intercourse d enies. G enitourinary: Patient denies a bdominal pain / swelling, blood in the urine, frequent urination. * Medications: T akingHydrocortisone 2.5 % Ointment External two times a day Retin-A 0.05 % Cream External every day Adderall 10 MG Tablet 1 tablet Oral two times a day , Notes to Pharmacist: please provide genericTaking Hydrocortisone 2.5 % Ointment External two times a day Taking Retin-A 0.05 % Cream External every day Taking Adderall 10 MG Tablet 1 tablet Oral two times a day , Notes to Pharmacist: please provide generic Objective: * Vitals: B P:98/68mm Hg, HR:88/min, Temp:97.1F, Oxygen sat %:99%. * Examination: G eneral Examination: General appearance: a lert, pleasant, well-nourished and in no acute distress. Head: n ormocephalic, atraumatic. Eyes: b oth eyes, conjunctiva clear. Ears: b oth ears, auditory canal clear, tympanic membrane intact and clear. Nose: n jaime patent, no lesions. Oral cavity: n ormal, mucosa moist, tongue is midline. Throat: c lear, no erythema, no exudate, pharynx normal.? Lymph nodes: n o cervical lymphadenopathy. Skin: s kin is warm and dry, with no rashes, good skin turgor and normal hair distribution. Heart: r egular rate and rhythm without murmurs, gallops, clicks or rubs, S1 and S2 are normal and no S3 and S4 gallop. Lungs: c lear to auscultation bilaterally, with good air movement and no rales, rhonchi or wheezes. Abdomen: T enderness across lower abdomen in suprapubic region. Slightly bloated on palpation. Hurts to walk and painful to be upright. Neurologic: a lert and oriented. Psych: n ormal affect / mood. Assessment: * Assessment: 1. P elvic pain in female - R10.2 (Primary) 2 . B andemia - D72.825 ? 3 . F ever, unspecified - R50.9 Plan: * Treatment: * ?Imaging: CT ABD+PEL W CON (Performed Date - 05/10/2025)* Sherly Linder 11:02:04 AM CDT > AUTH#[id number] 05/10/25-08/08/25 BARRIE FONSECA * Notes: Periumbilical pain that has moved into pelvic region. Intense yesterday, and improved while lying flat, and now pain has worsened as the day has gone on. CT abd/pelvis showed no acute findings, left 3.1cm left ovarian cyst . WBC is 17,000, neutrophils 89%. UA Showed 2+ leuks.? Called Dr. Lerner to relook at CT scan of abd/pelvis and no changes on relook.? -Due to worsening sx's of fever and pain. Will get stat surgical evaluation and will need to go ER.Patient opted to go to [facility]. Elba Mojica RN called report??2.?Others? Referral To:Surgery ?Reason:HARRISON General surgery * Therapeutic Injections: Toradol 30mg : 0.5 mg (Route: Intramuscular) given by Rubia Goldsmith on left deltoid * Procedure Codes: J 1885 Toradol [id number] THER/PROPH/DIAG INJ SC/IM Billing Information: * Visit Code: 67765 OFFICE VISIT MODERATE. * Procedure Codes: J1885 Toradol 30mg. 15001 THER/PROPH/DIAG INJ SC/IM. * Sign off status: Completed true * Provider: Nayeli Elias NP Date: 0 05/10/2025 Generated for Angeles gonzalez/Chrystal/Johnnyitting on: 0 05/10/2025 08:08 PM CDT
== END 2025-05-10 21:30 | disposition home or self-care (01) ==
PROVIDERS: Physician Assistant; Emergency Provider Registered Nurse; PCP Family Medicine
DX: N30.90 Cystitis, unspecified without hematuria (principal); N83.292 Other ovarian cyst, left side; R00.0 Tachycardia, unspecified; R94.31 Abnormal electrocardiogram [ECG] [EKG]
CPT/HCPCS: 36415; 71045; 74177; 76856; 80053; 81001; 81025; 83605; 83690; 85025; 85610; 85730; 86140; 87040; 87086; 87637; 93005; 96365; 96375; 99284; J1956; J2270; J7030; Q9967